=== PATIENT | female | born 1995 | race Caucasian/White ===

== ENCOUNTER 2023-10-21 10:00 | Emergency (ER) | payer OTHER, SELFPAY ==
[2023-10-21] VITALS (10 sets, daily range): BP systolic 105–119; BP diastolic 72–92; BMI 27.8
--- NOTE | 2023-10-21 10:02 | ED.GENMED ---
History of Present Illness
General
Chief Complaint: Overdose Unintentional
Time Seen by Provider: 10/21/23 10:01
History of Present Illness
History of Present Illness:
HPI: Patient came in by ambulance. History was obtained from EMS at 10:05 AM. They were called to her residence. There was 'some rhiannon' there who gave the patient Narcan. The patient tells me that she was 'smoking with some people'. She is a very
unreliable historian at this time. EMS also gave a dose of Narcan. She tells me that her son was there but EMS states that there was nobody else there other than that '1 rhiannon'.
EXAM:
GENERAL: The patient appears encephalopathic
HEENT: Moist oral mucosa
CARDIOVASCULAR: No murmurs, tachycardia heart rate with regular rhythm, No chest wall tenderness
PULMONARY: No respiratory distress, breath sounds are clear and equal
ABDOMEN: Soft with no peritoneal signs, no tenderness
NEUROLOGIC: Excellent strength all extremities, no coordination deficits
PSYCHIATRIC: Appropriate mental status, normal insight and judgement
EXTREMITIES: Nontender, no edema, moves all extremities equally
SKIN: No rash, no lesions
ED COURSE:
10:05 AM: I initially evaluated patient
NUMBER AND COMPLEXITY OF PROBLEMS ADDRESSED AT THE ENCOUNTER
� Chronic conditions affecting care: History of alcohol abuse
� Acute Exacerbation and/or Progression of Chronic Illness: This appears to be a recurring problem
� Differential Diagnosis includes: Delirium tremens, polysubstance abuse, hepatic encephalopathy
AMOUNT AND/OR COMPLEXITY OF DATA TO BE REVIEWED AND ANALYZED
� I performed an independent evaluation of and my interpretation is:
EKG: Sinus 96, left axis deviation, QTc 482 ms, no acute ST abnormality
CT:
X-rays:
Laboratory Studies: Alcohol level 322, UDS positive for amphetamine/methamphetamine, mild LFT abnormality noted, ammonia negative
Other:
� Review of other/old records: Patient was admitted here for 4 days this past July. At that time she was found to be pancytopenic and had abnormal LFTs and imaging showed a hemangioma and she ultimately signed out AMA at
that time.
� Clinical information was obtained by an independent historian: I spoke to EMS upon arrival, I also spoke to ex-boyfriend at bedside
� Prescriptions/Medications Considered but not given:
� Further testing considered but not performed:
RISK OF COMPLICATIONS AND/OR MORBIDITY OR MORTALITY OF PATIENT MANAGEMENT
� Social determinants of health affecting care: She was at a house in [facility] when this happened
� Discussion with other providers: No immediate response from [facility]
� Escalation of care including admission/observation vs risk of discharge considered: Blood work shows no sign of hepatic encephalopathy. However she is positive for both amphetamine and alcohol. She appeared confused at first
which I suspect is related to polysubstance abuse. I reassessed the patient at 2:20 PM. She is now significantly improved with her mental status. However she now reports some concern for the possibility of . She states she had a
positive test at home and had vaginal bleeding earlier and was concerned about the possibly of 'a pinworm in the blood'. I reassessed patient at 3 PM. hCG test is negative. She is very comfortable in appearance and prefers to go home.
Past History
Past History
ED Past Medical History: Other (Alcoholic liver disease)
ED Past Surgical History: Gynecological
Social History
Alcohol: Chronic alcoholic
Drug: Other
Living: with family
Employment: Not employed
Family History
Family History: Other (Noncontributory)
Phy Exam
Physical Exam
Physical Exam:
See HPI
Course
Orders/Labs/Results
Orders:
Orders
10/21/23
Electrocardiogram (*1) Stat
Comment: ALREADY DONE
10/21/23 10:10
0.9% Sodium Chloride 1000 ml [Nss] 1,000 ml IV BOLUS
10/21/23 10:14
Alcohol Urgent
Ammonia Urgent
Basic Metabolic Panel Urgent
Complete Blood Count/With Diff Urgent
LFT [[id number]-Njtr-[id number]] Urgent
Lipase Urgent
10/21/23 10:36
Drug Screen, Urine [Urine Drug Abuse Screen] Urgent
Date Specimen was Collected: 10/21/23
Time Specimen was Collected: 10:36
Fentanyl, Urine Urgent
HCG, Urine Qualitative Screen Urgent
Date Specimen was Collected: 10/21/23
Time Specimen was Collected: 10:36
10/21/23 12:09
Ondansetron Injectable [Zofran] 4 mg .ROUTE .STK-MED ONE
Ondansetron Injectable [Zofran] 4 mg IV NOW STA
10/21/23 13:18
0.9% Sodium Chloride 1000 ml [Nss] 1,000 ml IV BOLUS
Famotidine [Pepcid] 20 mg IV NOW STA
Ondansetron Injectable [Zofran] 4 mg IV NOW STA
10/21/23 14:23
Add On- LAB Urgent
Tests Added?: urine hcg
Abnormal Lab Results
10/21/23 10/21/23
10:14 10:36
WBC 4.3 L 10^3/uL
(4.8-10.8)
RBC 4.12 L 10^6/uL
(4.20-5.40)
Hct 35.2 L %
(37.0-47.0)
Plt Count 119 L 10^3/uL
(130-400)
Neutrophils % 37.6 L %
(42.2-75.2)
Lymphocytes % 54.0 H %
(20.5-51.1)
Creatinine 0.4 L mg/dL
(0.6-1.0)
Direct Bilirubin 0.7 H mg/dl
(0.0-0.4)
AST 198 H U/L
(14-36)
ALT 116 H U/L
(0-35)
Alkaline Phosphatase 133 H U/L
(38-126)
Ammonia < 9 L umol/L
(9-30)
Ur Amphetamines Screen Positive H
(Negative)
U Methamphetamines Scrn Positive H
(Negative)
10/21/23 10:14
10/21/23 10:14
Vital Signs
Initial and Last Documented VS:
Initial Vital Signs
Temp Pulse Resp BP Pulse Ox
98.3 F 114 16 112/92 100
10/21/23 10:07 10/21/23 10:07 10/21/23 10:07 10/21/23 10:07 10/21/23 10:07
Last Documented Vital Signs
Temp Pulse Resp BP Pulse Ox
98.3 F 97 16 114/83 97
10/21/23 10:07 10/21/23 13:45 10/21/23 13:45 10/21/23 13:30 10/21/23 13:45
*Critical Care Note
Total Time (30-74mins, 75-104mins- exclusive of procedures): Not Applicable
ED Attending Note
-
Portions of this chart may have been created with voice recognition software.� Occasional wrong word or��sound alike� substitutions may have occurred due to the inherent limitations of voice recognition software.
Discharge Plan
Departure
Patient Disposition: Home (Routine Discharge)
Date of Disposition: 10/21/23
Time of Disposition: 14:57
Patient with high blood pressure during this ER visit?: Yes
Discharge Problem:
Severe substance use disorder
Prescriptions:
No Action
lorazepam 1 mg Tablet
1 mg PO BID PRN (Reason: anxiety)
Rx Instructions:
07/24/2023, patient filled this medication on 06/06/2023 for 60 tablets according to PDMP.
albuterol sulfate 90 mcg/actuation Hfa Aerosol Inhaler
1 puff INHALATION R Q4HPRN PRN (Reason: sob)
Medical Marijuana
2 inh inhalation HS
Patient Comments:
07/24/2023, patient states their weed comes in a cartridge and they vape it every night before going to bed; patient states they usually take 2 inhalations of their vape pen.
Activity Restrictions/Additional Instructions:
I tried contacting [facility] however they did not answer. The phone number that you could try to call them at is [phone]. Basic blood work is relatively unremarkable, your alcohol level is high at 322 and you are positive for amphetamines in the
urine drug screen. test is negative. Return here if worse.
Interventions
Interventions:
*Risk Screen - Suicide Last Done: 10/21/23 10:20
*General Assessment Last Done: 10/21/23 10:20
*Neglect/Abuse Screening Last Done: 10/21/23 10:20
ED- Fall Risk Assessment Last Done: 10/21/23 10:23
*ED COVID-19 Vaccine History Last Done: 10/21/23 10:12
ED- Cardiac Assessment Last Done: 10/21/23 10:24
ED- Neurological Assessment Last Done: 10/21/23 10:24
ED-Psychological Assessment Last Done: 10/21/23 10:24
ED- Pulmonary Assessment Last Done: 10/21/23 10:24
[2023-10-21] MEDS: NSS 1000 IV ×2 (10:18→13:23)
[2023-10-21 10:25] LABS: % Basophils 0.5 % (0-2); % Eosinophils 0.7 % (0-6); % Immature Granulocytes 0.2 % (0-0.5); % Neutrophils 37.6 % (42.2-75.2); Absolute Lymphocytes 2.3 10^3/uL (1.2-3.4); Absolute Monocytes 0.3 10^3/uL (0.1-0.6); Absolute Neutrophils 1.6 10^3/uL (1.4-6.5); Hematocrit 35.2 % (37.0-47.0); Hemoglobin 12.3 g/dL (12.0-16.0); Mean Corp Hgb Conc. 34.9 g/dL (33.0-37.0); Mean Corpuscular Hgb 29.9 pg (27.0-31.0); Mean Corpuscular Volume 85.4 fL (81.0-99.0); Nucleated Red Blood Cells % 0 %; Red Blood Cell Count 4.12 10^6/uL (4.20-5.40); Red Cell Dist. Width 12.1 % (11.5-14.5); White Blood Cell Count 4.3 10^3/uL (4.8-10.8)
[2023-10-21 10:38] LABS: Ammonia < 9 umol/L (9-30)
[2023-10-21 10:40] LABS: ALT (SGPT) 116 U/L (0-35); AST (SGOT) 198 U/L (14-36); Albumin 4.8 g/dl (3.5-5.0); Alkaline Phosphatase 133 U/L (38-126); Blood Urea Nitrogen 9 mg/dl (7-17); Calcium 8.6 mg/dl (8.4-10.2); Carbon Dioxide 25 mmol/L (22-30); Chloride 101 mmol/L (98-107); Direct Bilirubin 0.7 mg/dl (0.0-0.4); Estimated Creatinine Clearance > 125 ml/min; Glucose 75 mg/dl (70-99); Lipase 173 U/L (23-300); Potassium 3.6 mmol/L (3.5-5.1); Sodium 140 mmol/L (135-145); Total Bilirubin 0.9 mg/dl (0.2-1.3); Total Protein 8.1 g/dl (6.3-8.2); eGFR > 60.00
[2023-10-21 11:34] LABS: Amphetamines Positive (Negative); Barbiturates Negative (Negative); Benzodiazepines Negative (Negative); Buprenorphine Negative (Negative); Cocaine Negative (Negative); Marijuana Negative (Negative); Methadone Negative (Negative); Methamphetamines Positive (Negative); Opiates Negative (Negative); Phencyclidine Negative (Negative); Tricyclic Antidepressants Negative (Negative)
[2023-10-21 11:45] LABS: Alcohol 322 mg/dl
[2023-10-21 11:48] LABS: Mean Platelet Volume 9.8 fL (7.4-10.4); Platelet Count 119 10^3/uL (130-400)
[2023-10-21] MEDS: ZOFRAN 4 MG IV ×2 (12:10→13:23)
[2023-10-21 12:15] LABS: Fentanyl, Urine Negative (Negative)
[2023-10-21] MEDS: PEPCID 20 MG IV (13:23)
[2023-10-21 14:42] LABS: HCG, Urine Qualitative Screen Negative
== END 2023-10-21 15:30 | disposition home or self-care (01) ==
LOC: EMR 10:00
PROVIDERS: EMERGENCY PHYSICIAN Emergency Medicine; FAMILY PHYSICIAN Physician Assistant Medical
DX: F15.90 Other stimulant use, unspecified, uncomplicated (principal); F10.90 Alcohol use, unspecified, uncomplicated; Y90.8 Blood alcohol level of 240 mg/100 ml or more; R41.0 Disorientation, unspecified; Z91.041 Radiographic dye allergy status
CPT/HCPCS: 99284; 96374; 96375 ×2; 96361 ×2; 80048; 80076; 80306; 80307; 81025; 82077; 82140; 83690; 85025; 93005

== ENCOUNTER 2023-10-22 14:17 | Emergency (ER) | payer OTHER, SELFPAY ==
[2023-10-22 14:22] VITALS: BP 120/90
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
[2023-10-22 15:39] LABS: % Basophils 0.5 % (0-2); % Eosinophils 0.3 % (0-6); % Immature Granulocytes 0.3 % (0-0.5); % Lymphocytes 19.5 % (20.5-51.1); % Monocytes 7.4 % (1.7-9.3); Absolute Lymphocytes 0.7 10^3/uL (1.2-3.4); Absolute Monocytes 0.3 10^3/uL (0.1-0.6); Absolute Neutrophils 2.7 10^3/uL (1.4-6.5); Hematocrit 32.7 % (37.0-47.0); Hemoglobin 11.4 g/dL (12.0-16.0); Mean Corp Hgb Conc. 34.9 g/dL (33.0-37.0); Mean Corpuscular Hgb 30.5 pg (27.0-31.0); Mean Corpuscular Volume 87.4 fL (81.0-99.0); Mean Platelet Volume 9.9 fL (7.4-10.4); Nucleated Red Blood Cells % 0 %; Platelet Count 78 10^3/uL (130-400); Red Blood Cell Count 3.74 10^6/uL (4.20-5.40); Red Cell Dist. Width 12.2 % (11.5-14.5); White Blood Cell Count 3.8 10^3/uL (4.8-10.8)
[2023-10-22] MEDS: TORADOL 15 MG IV (15:39)
[2023-10-22] MEDS: NSS 1000 IV (15:40)
[2023-10-22] MEDS: ZOFRAN 4 MG IV (15:40)
[2023-10-22 15:49] LABS: ALT (SGPT) 107 U/L (0-35); AST (SGOT) 186 U/L (14-36); Alkaline Phosphatase 104 U/L (38-126); Blood Urea Nitrogen 6 mg/dl (7-17); Calcium 9.1 mg/dl (8.4-10.2); Carbon Dioxide 29 mmol/L (22-30); Chloride 98 mmol/L (98-107); Glucose 87 mg/dl (70-99); Potassium 3.7 mmol/L (3.5-5.1); Sodium 137 mmol/L (135-145); Total Bilirubin 1.2 mg/dl (0.2-1.3); eGFR > 60.00
[2023-10-22 16:26] LABS: Lipase 144 U/L (23-300)
[2023-10-22] MEDS: BENADRYL 25 MG IV (17:03)
[2023-10-22] MEDS: SOLU-CORTEF 200 MG IV (17:03)
[2023-10-22 17:41] LABS: HCG, Serum Qualitative Screen Negative
[2023-10-22 19:35] VITALS: BP 105/75
== END 2023-10-22 20:02 | disposition home or self-care (01) ==
LOC: EMR 14:17
PROVIDERS: Physician Assistant; EMERGENCY PHYSICIAN Emergency Medicine
DX: R10.9 Unspecified abdominal pain (principal); K29.70 Gastritis, unspecified, without bleeding; F10.10 Alcohol abuse, uncomplicated; D69.6 Thrombocytopenia, unspecified
CPT/HCPCS: 99284; 96374; 96375; 96361; 74177; 80053; 83690; 84703; 85025; Q9967

== ENCOUNTER 2024-02-05 01:00 | Emergency (ER) | payer OTHER, SELFPAY ==
[2024-02-05 01:04] VITALS: BP 120/76
[2024-02-05 02:17] VITALS: BMI 30.9
[2024-02-05 02:32] LABS: % Basophils 0.8 % (0-2); % Eosinophils 1.7 % (0-6); % Immature Granulocytes 0.2 % (0-0.5); % Lymphocytes 32.9 % (20.5-51.1); % Monocytes 14.3 % (1.7-9.3); % Neutrophils 50.1 % (42.2-75.2); Absolute Eosinophils 0.1 10^3/uL (0-0.7); Absolute Lymphocytes 1.7 10^3/uL (1.2-3.4); Absolute Monocytes 0.7 10^3/uL (0.1-0.6); Absolute Neutrophils 2.6 10^3/uL (1.4-6.5); Hematocrit 31.7 % (37.0-47.0); Hemoglobin 10.2 g/dL (12.0-16.0); Mean Corp Hgb Conc. 32.2 g/dL (33.0-37.0); Mean Corpuscular Hgb 28.5 pg (27.0-31.0); Mean Corpuscular Volume 88.5 fL (81.0-99.0); Mean Platelet Volume 10.2 fL (7.4-10.4); Nucleated Red Blood Cells % 0 %; Platelet Count 167 10^3/uL (130-400); Red Blood Cell Count 3.58 10^6/uL (4.20-5.40); Red Cell Dist. Width 14.5 % (11.5-14.5); White Blood Cell Count 5.2 10^3/uL (4.8-10.8)
--- NOTE | 2024-02-05 02:36 | EDRN ---
Pt pleasant, cooperative, very talkative. Pt came to crisis to be placed in a different rehab. Pt says she abuses alcohol, meth and percocet. Pt last drank 4 days ago. Pt in ED for medical clearance.
[2024-02-05 02:53] LABS: HCG, Serum Qualitative Screen Negative
[2024-02-05 02:57] LABS: Blood Urea Nitrogen 9 mg/dl (7-17); Calcium 9.4 mg/dl (8.4-10.2); Carbon Dioxide 28 mmol/L (22-30); Chloride 104 mmol/L (98-107); Estimated Creatinine Clearance > 125 ml/min; Glucose 92 mg/dl (70-99); Potassium 3.9 mmol/L (3.5-5.1); Sodium 139 mmol/L (135-145); eGFR > 60.00
[2024-02-05 02:59] LABS: Alcohol None Detected
--- NOTE | 2024-02-05 03:29 | ED.GENMED ---
History of Present Illness
General
Chief Complaint: Substance Abuse
Source: patient
Exam Limitations: none
Time Seen by Provider: 02/05/24 03:29
Nursing documentation reviewed up to this point in time: agreed with
Travel History
Have you had any contact with someone who has COVID-19?: No
Do you have any symptoms of coronavirus? Fever > 100 degrees, chills, cough, shortness of breath, sore throat, loss of taste or smell, muscle aches, or headache?: No
History of Present Illness
History of Present Illness:
28-year-old female presents to the emergency department requesting detox from alcohol, meth, and Percocet. She was in a facility several days ago and was discharged because she was vomiting and the facility did not have the capability to handle her
incessant vomiting.. She stated that she vomits when she does not have her Protonix. She could not get her Protonix at the facility until Monday. Patient reports no substance use for the last week.
Past History
Past History
ED Past Medical History: Other (Alcoholic liver disease)
ED Past Surgical History: Gynecological
Social History
Alcohol: Chronic alcoholic
Drug: Other
Living: with family
Employment: Not employed
Family History
Family History: Other (Noncontributory)
Review of Systems
Review of Systems
Allergies reviewed?: Yes
All Other Systems: ROS reviewed and negative except as documented in HPI and ROS
Constitutional: Reports no symptoms
EENT: Reports no symptoms
Respiratory: Reports no symptoms
Cardiac: Reports no symptoms
ABD/GI: Reports no symptoms
: Reports no symptoms
Musculoskeletal: Reports no symptoms
Skin: Reports no symptoms
Neurological: Reports no symptoms
Endocrine: Reports no symptoms
Hematologic/Lymphatic: Reports no symptoms
Psychiatric: Reports no symptoms
Phy Exam
General Physical Exam
General Presentation: well appearing and no apparent distress
General Skin: warm and dry
General Habitus: normal
General Mental: alert
General Hydration: appears well hydrated
ENT Exam
ENT Exam: EOMI, pharynx normal, neck supple and normocephalic
Eye Exam
Eye Exam: PERRL, cornea clear and conjunctiva normal
Cardiovascular Exam
Cardiovascular Exam: regular rate/rhythm, no edema, no murmur and normal peripheral pulses
Pulmonary Exam
Pulmonary Exam: lungs clear, no respiratory distress, no rales, no crackles, no rhonchi, no stridor, no wheezing and no cough
Gastrointestinal Exam
Gastrointestinal Exam: normal bowel sounds, non tender, soft, no organomegaly, no pulsatile mass and non distended
Neurological Exam
Neurological Exam: alert, oriented x3, no motor deficits and speech normal
Musculoskeletal Exam
Musculoskeletal Exam: full ROM and no edema
Skin Exam
Skin Exam: normal color, warm/dry, no rash and no petechia
Psychiatric Exam
Psychiatric Exam: normal mood/affect
Course
Orders/Labs/Results
Orders:
Orders
02/05/24 02:09
Test Result ONCE
02/05/24 02:17
Alcohol Urgent
Basic Metabolic Panel Urgent
Complete Blood Count/With Diff Urgent
HCG, Serum Qualitative Screen Urgent
02/05/24 06:37
Buprenorphine [Subutex] 2 mg SL NOW STA
Clonidine [Catapres] 0.1 mg PO NOW STA
02/06/24 00:50
Buprenorphine [Subutex] 2 mg SL NOW ONE
02/06/24 09:24
Clonidine [Catapres] 0.1 mg PO NOW STA
HydrOXYZINE [Atarax] 25 mg PO NOW STA
Loratadine [Claritin] 10 mg PO NOW STA
Lorazepam [Ativan] 1 mg PO NOW STA
Pantoprazole [Protonix] 40 mg PO NOW STA
Sertraline HCl [Zoloft] 50 mg PO NOW STA
02/06/24 09:25
Buprenorphine [Subutex] 16 mg SL ONCE ONE
02/06/24 09:39
Docusate W/Senna [Senokot-S] 2 tablet PO NOW STA
02/06/24 09:45
Amphet Asp/Amphet/D-Amphet [Adderall] 20 mg PO ONCE ONE
02/06/24 09:55
Phenyleph/Mineral Oil/Petrolat [Preparation H Ointment] See Dose Instructions RECTAL NOW STA
02/06/24 10:00
Bupropion(12Hr)Sustain Release [WELLBUTRIN SR (12 hour sustained release)] 150 mg PO ONCE ONE
Abnormal Lab Results
02/05/24
02:17
RBC 3.58 L 10^6/uL
(4.20-5.40)
Hgb 10.2 L g/dL
(12.0-16.0)
Hct 31.7 L %
(37.0-47.0)
MCHC 32.2 L g/dL
(33.0-37.0)
Absolute Monos (auto) 0.7 H 10^3/uL
(0.1-0.6)
Monocytes % 14.3 H %
(1.7-9.3)
02/05/24 02:17
02/05/24 02:17
Vital Signs
Initial and Last Documented VS:
Initial Vital Signs
Temp Pulse Resp BP Pulse Ox
97.7 F 112 22 120/76 98
02/05/24 01:04 02/05/24 01:04 02/05/24 01:04 02/05/24 01:04 02/05/24 01:04
Last Documented Vital Signs
Temp Pulse Resp BP Pulse Ox
97.7 F 61 18 93/51 99
02/05/24 01:04 02/06/24 09:36 02/05/24 20:59 02/06/24 09:36 02/06/24 07:44
*Critical Care Note
Total Time (30-74mins, 75-104mins- exclusive of procedures): Not Applicable
Update Note
Update Note:
Abraham Khanna called and will confirm [facility] facility is able to accept her for the morning.
02/05/2024 0423 AM: The care is called back and stated that patient can be discharged while waiting for a bed. We will give her a packet and they will call her to let her know where and when to report for treatment.
ED Attending Note
-
Portions of this chart may have been created with voice recognition software.� Occasional wrong word or��sound alike� substitutions may have occurred due to the inherent limitations of voice recognition software.
Discharge Plan
Departure
Patient Disposition: Home (Routine Discharge)
Date of Disposition: 02/05/24
Time of Disposition: 04:13
Patient with high blood pressure during this ER visit?: Yes
Discharge Problem:
Polypharmacy, Alcohol use
Instructions: Polysubstance Use Disorder (DC), BLOOD PRESSURE
Prescriptions:
No Action
lorazepam 1 mg Tablet
1 mg PO QID
albuterol sulfate 90 mcg/actuation Hfa Aerosol Inhaler
1 puff INHALATION R Q4HPRN PRN (Reason: sob)
clonidine HCl 0.1 mg Tablet
0.1 mg PO BIDPRN PRN (Reason: anxiety/withdrawal)
trazodone 50 mg Tablet
50 mg PO HS
prazosin 1 mg Capsule
1 mg PO HS
dextroamphetamine-amphetamine [Adderall] 10 mg Tablet
10 mg PO HS
melatonin 3 mg Tablet
3 - 6 mg PO HSPRN PRN (Reason: sleep)
tramadol 50 mg Tablet
50 mg PO BID PRN (Reason: liver mass pain)
pantoprazole [Protonix] 20 mg Tablet,Delayed Release (Dr/Ec)
20 mg PO DAILY
dextroamphetamine-amphetamine [Adderall] 20 mg Tablet
20 mg PO DAILY
mirtazapine [Remeron] 15 mg Tablet
15 mg PO HS
sertraline 50 mg Tablet
50 mg PO DAILY
loratadine 10 mg Tablet
10 mg PO DAILY
hydroxyzine pamoate 25 mg Capsule
25 mg PO Q6H
bupropion HCl [Wellbutrin XL] 150 mg Tablet Extended Release 24 Hr
150 mg PO DAILY
buprenorphine-naloxone [Suboxone] 8-2 mg Tablet, Sublingual
2 tab SUBLINGUAL DAILY
Referrals:
Adolfo Pickard PA-C [Family Provider] -
Marysol Beaver [Active] -
Activity Restrictions/Additional Instructions:
[facility] will call you when a bed is available and will give you instructions on how to obtain a rehab facility. Patient was reexamined multiple times during this ER stay.
It was a pleasure meeting you and taking part in your care. We hope for your continued healing and wellness.
Please read discharge instructions in their entirety. However, they are for general education and may not describe your exact diagnosis at discharge. Information on your ER visit and medical conditions were discussed with you along with appropriate
follow up information...
If indicated, please take your medications as instructed and indicated on discharge paperwork.
Please schedule a follow up appointment as directed. Call to schedule an appointment
Please return to the emergency department with ANY change in, persisting, or worsening of symptoms. If any of your symptoms do not improve, or persist, or become more severe within 6-12 hours, please return to the emergency department for further
care.
Please return to the emergency department if you develop a headache, neck pain/stiffness, fever greater than 100.4F, chest pain, shortness of breath, persistent nausea, vomiting, slurred speech, difficulty walking, numbness/tingling, weakness, signs
of infection or any other symptoms that are worrisome to you.
If you have any questions or concerns please do not hesitate to call the Hospital at .
.
Interventions
Interventions:
*Risk Screen - Suicide Last Done: 02/05/24 01:04
*General Assessment Last Done: 02/05/24 02:17
*Neglect/Abuse Screening Last Done: 02/05/24 01:04
ED- Fall Risk Assessment Last Done: 02/06/24 12:01
*ED COVID-19 Vaccine History Last Done: 02/05/24 02:08
*Nursing Disposition Last Done: 02/06/24 12:01
ED-Psychological Assessment Last Done: 02/06/24 07:49
ED-Skin Assessment Last Done: 02/05/24 02:34
Discharge Date and Time
Discharge Date/Time: 02/06/24 12:03
Print Language: HUNGARIAN
[2024-02-05 06:19] VITALS: BP 107/62
--- NOTE | 2024-02-05 06:22 | EDRN ---
Woke pt to recheck VS and give her d/c instructions. Pt upset that she is not being placed in rehab from here. Pt says she was told to come here and would be placed in a rehab. Pt very concerned about leaving stating she knows she will not be
safe and will probably use drugs and/or alcohol. Dr Torres informed and UC calling [facility] to let them know pt is not being discharged, will remain here and needs to be placed from . Pt updated and relieved with change in disposition.
[2024-02-05] MEDS: SUBUTEX 2 MG SL (07:40)
[2024-02-05] MEDS: CATAPRES 0.100000000000000006 MG PO (07:40)
[2024-02-05 11:07] VITALS: BP 112/74
[2024-02-05 18:09] VITALS: BP 110/73
[2024-02-05 20:59] VITALS: BP 115/74
--- NOTE | 2024-02-06 00:30 | EDRN ---
Report received, patient resting comfortably at this time.
[2024-02-06] MEDS: SUBUTEX 2 MG SL (00:53)
--- NOTE | 2024-02-06 01:01 | EDRN ---
Patient was asking about subutex, reported they gave her some before, spoke with Dr. Colbert who ordered what she got before, patient resting comfortably with security at bedside, no further complaints
--- NOTE | 2024-02-06 06:15 | EDRN ---
Patient is sleeping at this time, call medrano in reach
--- NOTE | 2024-02-06 07:04 | EDRN ---
Report given to Sarina Stanford
[2024-02-06 07:44] VITALS: BP 90/63
[2024-02-06] MEDS: PROTONIX 40 MG PO (09:35)
[2024-02-06] MEDS: ATIVAN 1 MG PO (09:35)
[2024-02-06] MEDS: ATARAX 25 MG PO (09:35)
[2024-02-06] MEDS: CLARITIN 10 MG PO (09:36)
[2024-02-06] MEDS: CATAPRES 0.100000000000000006 MG PO (09:36)
[2024-02-06] MEDS: ZOLOFT 50 MG PO (09:36)
[2024-02-06] MEDS: SUBUTEX 16 MG SL (09:43)
[2024-02-06] MEDS: SENOKOT-S 2 TABLET PO (09:43)
[2024-02-06] MEDS: WELLBUTRIN SR (12 hour sustained release) 150 MG PO (09:53)
[2024-02-06] MEDS: ADDERALL 20 MG PO (09:54)
== END 2024-02-06 12:03 | disposition home or self-care (01) ==
LOC: EMR 01:00
PROVIDERS: EMERGENCY PHYSICIAN Student in an Organized Health Care Education/Training Program; FAMILY PHYSICIAN Physician Assistant Medical
DX: F10.20 Alcohol dependence, uncomplicated (principal); F15.10 Other stimulant abuse, uncomplicated; F11.10 Opioid abuse, uncomplicated; K70.9 Alcoholic liver disease, unspecified; M79.89 Other specified soft tissue disorders
CPT/HCPCS: 99285; 80048; 82077; 84703; 85025

== ENCOUNTER 2024-11-12 12:33 | Inpatient (IN) | payer OTHER, SELFPAY ==
[2024-11-09] VITALS (9 sets, daily range): BP systolic 95–136; BP diastolic 64–94; BMI 26.5
--- NOTE | 2024-11-09 15:10 | ED.GENMED ---
History of Present Illness
General
Chief Complaint: Overdose Unintentional
Source: ambulance crew
Exam Limitations: altered mental status
Time Seen by Provider: 11/09/24 14:55
Nursing documentation reviewed up to this point in time: agreed with
History of Present Illness
History of Present Illness:
29-year-old female presents emergency department after an overdose. She took a lot of pills, drank alcohol and called EMS. EMS gave her 2 mg IM Narcan, and 2 mg IV Narcan. They state her vital signs were stable throughout. She opens her eyes to
voice and touch. She has clonidine 0.1 mg, folic acid 1 mg, lorazepam 1 mg, bupropion XL 150 mg, vitamin B1 100 mg tablets, buspirone 5 mg, dextro amp�amphetamine, trazodone 50 mg , pantoprazole 40 mg, 25 mg hydroxyzine, and melatonin 3 mg.
Past History
Past History
ED Past Medical History: GERD and Other (Alcoholic liver disease)
ED Past Surgical History: Gynecological
Social History
Alcohol: Chronic alcoholic
Drug: Other
Living: with family
Employment: Not employed
Family History
Family History: Other (Noncontributory)
Review of Systems
Review of Systems
Allergies reviewed?: Yes
All Other Systems: Not applicable
Phy Exam
Physical Exam
Physical Exam:
Physical Exam
General: opens eyes spontaneously, nonverbal, drowsy
Neck: supple. no meningeal signs. normal posterior pharynx
Heart: s1/s2 regular rate and rhythm, no murmur. equal radial
pulses.
HEENT: Pupils equal round reactive to light, EOMI
Lungs: no acute respiratory distress. clear bilaterally
Abdomen: normal bowel sounds. not tender. no CVAT
Neuro: Opens eyes spontaneously, moves all extremities
Skin: no rash, multiple tattoos on chest
Psychiatric: Obtunded, nonverbal, drowsy
Extremities: no edema. no calf tenderness. negative homans. good distal pulses
Course
Orders/Labs/Results
Orders:
Orders
11/09/24 14:57
Electrocardiogram (*1) Urgent
Reason for Study: Fatigue / Weakness
11/09/24 14:58
EKG- Treatment ONCE
11/09/24 14:59
Complete Blood Count/With Diff Urgent
Comprehensive Metabolic Panel Urgent
Fentanyl, Urine Urgent
Urinalysis Reflex To Culture Urgent
Date Specimen was Collected: 11/09/24
Time Specimen was Collected: 14:57
Urine Drug Abuse Screen Urgent
Date Specimen was Collected: 11/09/24
Time Specimen was Collected: 14:57
11/09/24 Dinner
Regular
At Your Request: Full Participation
11/09/24 15:06
Cardiac Monitoring- Treatment ONCE
11/09/24 15:07
CT Head W/o Iv Contrast Urgent
Comment:
Reason For Exam: altered mental status
11/09/24 15:08
CR Chest Portable - 1 View Urgent
Comment:
Reason For Exam: overdose, altered mental status
Reason Study Needs to be Portable: Patient Unstable
11/09/24 15:09
Test Result ONCE
11/09/24 15:10
Bedside Glucose- Treatment ONCE
11/09/24 15:11
Acetaminophen Urgent
Alcohol Urgent
B-Hydroxybutyrate Urgent
GGTP Urgent
HCG, Serum Qualitative Screen Urgent
Magnesium Urgent
Salicylate Urgent
11/09/24 19:13
Admit/Transfer Patient As Directed
Co-Sign Provider:
Level of Care: Observation services
Assign to:: Telemetry
Physician / Group: Ashwin Melgoza
Diagnosis: overdose, alcohol intoxication
Reason for Telemetry: Arrhythmia
Date to Stop Telemetry: 11/12/24
Time to Stop Telemetry: 11:00
11/09/24 19:14
PRN Pain Medication Management As Directed
May give lesser potent ordered pain med per pt: Yes
preference::
Protocol:: Medication orders for pain may be administered in a
manner that supports deferring to patient preference
when the pt is:
- Requesting an ordered lesser potent pain medication.
Least to most potent pain medications are defined
as: acetaminophen < NSAID < tramadol < opioids
(morphine, oxycodone, hydromorphone).
- Requesting a lesser dose of the same medication IF
ORDERED.
- Requesting a less intrusive route of administration
if both routes are prescribed by the provider (PO <
IV).
11/09/24 19:15
Code Status As Directed
Resuscitation Status: Full Code
11/09/24 20:47
0.9% Sodium Chloride 1000 ml [Nss] 1,000 ml IV 100 mls/hr
0.9% Sodium Chloride [Nss (Preservative Free)] See Protocol IV PRN PRN
Lorazepam [Ativan] 1 mg IV Q1HPRN PRN
Lorazepam [Ativan] 1 mg PO Q2HPRN PRN
Lorazepam [Ativan] 2 mg IV Q1HPRN PRN
11/09/24 20:47
1:1 Observation - Suicide/ Violent Behavior As Directed
Case Management Consult Once
Case Management Consult: Other
Comment: Substance abuse counseling
PSYCHIATRY CONSULT Routine
Consulting Provider: Stacey Kerr
Was physician already notified: Yes
Reason for consult: overdose
Activity As Directed
Activity Level: Out of Bed-Early Mobility
MSAS SCORE As Directed
MSAS Score 0-4: Repeat MSAS every 2 hours until 0-4 for three consecutive assessments, then every 4 hours x 48
hours.
MSAS Score 5-7: For MILD withdrawl symptoms. Repeat MSAS and RASS every 2 hours
MSAS Score 8-11: For MODERATE withdrawal symptoms. Repeat MSAS and RASS every 1 hour. Consider ICU or IMU
level of care.
MSAS Score > 11: For SEVERE withdrawal symptoms. Repeat MSAS and RASS every 1 hour. Notify provider, consider
ICU level of care.
MSAS Additional Instructions: If no improvement or no decrease in score from severe to moderate within 12
hours, consult psychiatry
MSAS Notify Provider: Notify provider if patient requires more than 10 mg of Lorazepam in eight hour period.
Pneumatic Compression Sleeves As Directed
Type: Knee high
Vital Signs As Directed
Frequency: Per unit guidelines
Weight As Directed
Frequency: Once
DX Deep Vein Thrombosis Video Routine
11/10/24 00:00
Thiamine Injection 200 mg IV Q8
Thiamine Injection 500 mg 0.9% Sodium Chloride 250 ml [Nss] 250 ml IV Q8
11/10/24 06:00
EKG [Electrocardiogram (*1)] IN AM
Reason for Study: QTc Monitoring
Basic Metabolic Panel IN AM
Comprehensive Metabolic Panel IN AM
Phosphorus IN AM
11/10/24 08:00
FOLic ACID [Folvite] 1 mg PO DAILY
FOLic ACID [Folvite] 1 mg 0.9% Sodium Chloride 50 ml [Nss] 50 ml IV DAILYPRN
11/12/24 11:00
DC Protocol for Telemetry ONCE
11/12/24 20:00
Thiamine HCl [Vitamin B1] 100 mg PO BID
Abnormal Lab Results
11/09/24 11/09/24 11/09/24
14:59 15:11 15:18
WBC 4.6 L 10^3/uL
(4.8-10.8)
MPV 10.6 H fL
(7.4-10.4)
Chloride 108 H mmol/L
(98-107)
Glucose 110 H mg/dl
(70-99)
GGT 176 H U/L
(12-43)
AST 316 H U/L
(14-36)
ALT 127 H U/L
(0-35)
Salicylates < 1.0 L mg/dl
(2.0-20.0)
Acetaminophen < 10 L ug/ml
(10-30)
Ur Amphetamines Screen Positive H
(Negative)
U Benzodiazepines Scrn Positive H
(Negative)
POC Glucose 110 H mg/dl
(70-99)
11/09/24 14:59
11/09/24 14:59
Vital Signs
Initial and Last Documented VS:
Initial Vital Signs
Pulse Resp BP Pulse Ox
64 11 108/83 100
11/09/24 14:54 11/09/24 14:54 11/09/24 14:54 11/09/24 14:54
Last Documented Vital Signs
Temp Pulse Resp BP Pulse Ox
98.2 F 64 16 136/94 98
11/09/24 22:02 11/09/24 22:02 11/09/24 22:02 11/09/24 22:02 11/09/24 22:02
MDM/Problems Addressed
Differential Diagnosis Includes:
Toxic ingestion, alcohol intoxication, suicide attempt
MDM/Problems Addressed:
29-year-old female with alcohol ingestion, now denying SI. Admit for further evaluation and monitoring for seizures due to bupropion ingestion.
Chronic conditions affecting care: Other (Liver disease alcoholic)
*Radiology
Radiology exam reviewed: radiology read reviewed (CT head no acute findings, cxr nad)
*Pulse Oximetry
Patient hypoxic: no
*EKG
Interpreted by ED Provider?: Yes
EKG Intrepretation Date: 11/09/24
EKG Intrepretation Time: 15:05
Interpretation: normal
Comparison EKG: no comparison EKG present
Heart Rate: 66
Rate: normal
Rhythm: sinus
[place]: normal axis
Interval: normal interval
QRS Pattern: normal QRS
Ischemia: no ischemia
*Community Program Assistant Interpretation
Rate: normal
Interpretation: normal
Heart Rate: 68
Rhythm: sinus
*Critical Care Note
Total Time (30-74mins, 75-104mins- exclusive of procedures): 30
comment:
Critical care statement: A total of 30 minutes of critical care time was provided for this patient. This includes management of unstable vital signs, evaluation of the patient at bedside, reviewing the patient's pertinent medical records, discussion
with consultants, review of old EKGs and review of pertinent medical records. This time with separate from time utilized to perform the aforementioned documented procedures
Patient Management
Social determinants of health affecting care: Living situation and Substance abuse
Discussion with other providers: Hospitalist
Escalation/DeEscalation of care consider admission/obs:
Admit indicated
ED Attending Note
-
Portions of this chart may have been created with voice recognition software.� Occasional wrong word or��sound alike� substitutions may have occurred due to the inherent limitations of voice recognition software.
Discharge Plan
Departure
Patient Disposition: Admit
Date of Disposition: 11/09/24
Time of Disposition: 18:41
Admit to: IMU
Presentation/result/management discussed w/ accepting MD/DO: Hospitalist
Patient with high blood pressure during this ER visit?: No
Condition: Fair
Discharge Problem:
Overdose by ingestion, Alcohol intoxication
Interventions
Interventions:
*Risk Screen - Suicide Last Done: 11/09/24 14:56
*General Assessment Last Done: 11/09/24 14:56
*Neglect/Abuse Screening Last Done: 11/09/24 14:56
ED- Fall Risk Assessment Last Done: 11/09/24 21:46
*ED COVID-19 Vaccine History Last Done: 11/09/24 14:56
*Nursing Disposition Last Done: 11/09/24 21:46
ED- Cardiac Assessment Last Done: 11/09/24 15:00
ED- Neurological Assessment Last Done: 11/09/24 15:00
ED-Psychological Assessment Last Done: 11/09/24 15:00
ED- Pulmonary Assessment Last Done: 11/09/24 15:00
Discharge Date and Time
Discharge Date/Time: 11/09/24 21:46
[2024-11-09 15:15] LABS: Urine Albumin Negative (Neg - Trace); Urine Bilirubin Negative (Negative); Urine Character Clear (Clear); Urine Color Yellow; Urine Glucose Negative (Negative); Urine Ketone Negative (Negative); Urine Leukocyte Negative (Negative); Urine Nitrite Negative (Negative); Urine Occult Blood Negative (Negative); Urine Urobilinogen Negative (Neg - 1+); Urine pH 6.5 (5.0-9.0)
[2024-11-09 15:18] LABS: % Basophils 0.7 % (0-2); % Eosinophils 0.7 % (0-6); % Immature Granulocytes 0.4 % (0-0.5); % Lymphocytes 47.8 % (20.5-51.1); % Monocytes 5.5 % (1.7-9.3); % Neutrophils 44.9 % (42.2-75.2); Absolute Lymphocytes 2.2 10^3/uL (1.2-3.4); Absolute Monocytes 0.3 10^3/uL (0.1-0.6); Absolute Neutrophils 2.1 10^3/uL (1.4-6.5); Hematocrit 38.5 % (37.0-47.0); Hemoglobin 12.9 g/dL (12.0-16.0); Mean Corp Hgb Conc. 33.5 g/dL (33.0-37.0); Mean Corpuscular Hgb 28.2 pg (27.0-31.0); Mean Corpuscular Volume 84.1 fL (81.0-99.0); Mean Platelet Volume 10.6 fL (7.4-10.4); Nucleated Red Blood Cells % 0 %; Platelet Count 178 10^3/uL (130-400); Red Blood Cell Count 4.58 10^6/uL (4.20-5.40); Red Cell Dist. Width 13.8 % (11.5-14.5); White Blood Cell Count 4.6 10^3/uL (4.8-10.8)
[2024-11-09 15:20] LABS: Glucose - Point of Care 110 mg/dl (70-99)
[2024-11-09 15:39] LABS: ALT (SGPT) 127 U/L (0-35); AST (SGOT) 316 U/L (14-36); Albumin 4.1 g/dl (3.5-5.0); Alkaline Phosphatase 112 U/L (38-126); Blood Urea Nitrogen 8 mg/dl (7-17); Calcium 8.6 mg/dl (8.4-10.2); Carbon Dioxide 26 mmol/L (22-30); Chloride 108 mmol/L (98-107); Glucose 110 mg/dl (70-99); Potassium 4.4 mmol/L (3.5-5.1); Sodium 143 mmol/L (135-145); Total Bilirubin 0.8 mg/dl (0.2-1.3); Total Protein 7.1 g/dl (6.3-8.2); eGFR > 60.00
[2024-11-09 15:40] LABS: HCG, Serum Qualitative Screen Negative
[2024-11-09 15:43] LABS: Acetaminophen < 10 ug/ml (10-30); Salicylate < 1.0 mg/dl (2.0-20.0)
[2024-11-09 15:59] LABS: Alcohol 343 mg/dl
[2024-11-09 16:05] LABS: Amphetamines Positive (Negative); Barbiturates Negative (Negative); Benzodiazepines Positive (Negative); Buprenorphine Negative (Negative); Cocaine Negative (Negative); Marijuana Negative (Negative); Methadone Negative (Negative); Methamphetamines Negative (Negative); Opiates Negative (Negative); Phencyclidine Negative (Negative); Tricyclic Antidepressants Negative (Negative)
[2024-11-09 16:28] LABS: Fentanyl, Urine Negative (Negative)
--- NOTE | 2024-11-09 18:42 | HPS.HSE ---
Family Physician
-
Family Physician: INTERVIEWE UNKNOWN - PT NOT
Chief Complaint
-
overdose
History of Present Illness
Patient is a 29-year-old female with past medical history significant for substance abuse, alcohol abuse, anxiety and ADHD who presented to [facility] ED for unintentional overdose. HPI gathered from ED documentation. It is reported that
patient took a lot of pills, drank alcohol and called EMS. EMS administered 2mg IM Narcan and 2mg IV Narcan. EMS stated VS remained stable during transport. Patient will wake to name, but does not answer questions directly. She has multiple
prescription bottles at bedside, sucralfate, lorazepam, melatonin, bupropion, buspirone, Vit B1, Adderall, trazodone, Protonix and folic acid. When questioned patient states she does not take any medication everyday and does not know last time she
took any medication. All bottles dated from >1 month ago.
Medical History
Past Medical History
Past Medical History: Reports Other
Additional Past Medical History:
substance abuse
alcohol abuse
anxiety
ADHD
Past Surgical History: Reports Other
Additional Past Surgical History:
lipoma neck removal
tonsillectomy
adenoidectomy
Social History
Unable to obtain full social history at this time due to: Other (patient does not answer questioning )
Family History
Family History: Unable to Obtain
Allergies / Home Medications
Allergies reflects when Allergies were last updated in [facility].
Home Medications with original date entered in [facility]
Allergy/Medication List:
Allergies
Allergy/AdvReac Type Severity Reaction Status Date / Time
Iodinated Contrast Media Allergy Unknown Verified 02/05/24 01:08
Home Medications
albuterol sulfate 90 mcg/actuation aerosol inhaler 1 puff inhalation R Q4HPRN PRN sob 07/24/23
lorazepam 1 mg tablet 1 mg PO QID 07/24/23
buprenorphine 8 mg-naloxone 2 mg sublingual tablet 2 tab sublingual DAILY 02/05/24
bupropion HCl 150 mg 24 hr tablet, extended release (Wellbutrin XL) 150 mg PO DAILY 02/05/24
clonidine HCl 0.1 mg tablet 0.1 mg PO BIDPRN PRN anxiety/withdrawal 02/05/24
dextroamphetamine-amphetamine 10 mg tablet (Adderall) 10 mg PO HS 02/05/24
dextroamphetamine-amphetamine 20 mg tablet (Adderall) 20 mg PO DAILY 02/05/24
hydroxyzine pamoate 25 mg capsule 25 mg PO Q6H 02/05/24
loratadine 10 mg tablet 10 mg PO DAILY 02/05/24
melatonin 3 mg tablet 3 - 6 mg PO HSPRN PRN sleep 02/05/24
mirtazapine 15 mg tablet (Remeron) 15 mg PO HS 02/05/24
pantoprazole 20 mg tablet,delayed release (Protonix) 20 mg PO DAILY 02/05/24
prazosin 1 mg capsule 1 mg PO HS 02/05/24
sertraline 50 mg tablet 50 mg PO DAILY 02/05/24
tramadol 50 mg tablet 50 mg PO BID PRN liver mass pain 02/05/24
trazodone 50 mg tablet 50 mg PO HS 02/05/24
Review of Systems
-
Unable to obtain full review of systems at this time due to: Other (patient does not answer questioning )
History Source: Patient
Physical Exam
Vital Signs
Vital Signs
Pulse Resp BP Pulse Ox
63 8 98/70 99
11/09/24 18:15 11/09/24 18:15 11/09/24 18:00 11/09/24 18:15
Physical Exam
General: Well Developed, Well Nourished and No Apparent Distress
HEENT: NormoCephalic, Moist mucous membranes, Atraumatic, [place] Conjunctivae, Nose Appears Normal and Ears Appear Normal
Respiratory: Clear and Non Labored Respirations
Cardiac: S1/S2 and Regular Rhythm; No Murmur, Rub or Gallop
GI: Soft, Non Tender, Non Distended and Normal Bowel Sounds; No Organomegaly
Rectal: Deferred by Provider
Genito-urinary: Deferred by me
Musculoskeletal: No Clubbing, No Cyanosis and No Edema
Skin: Warm and IV/Catheter Site; No Rash
Neuro: Slurred Speech and Sedated
Laboratory Results
-
11/09/24 14:59
11/09/24 14:59
Laboratory Results
Total Bilirubin 0.8 mg/dl (0.2-1.3) 11/09/24 14:59
AST 316 U/L (14-36) H 11/09/24 14:59
ALT 127 U/L (0-35) H 11/09/24 14:59
Alkaline Phosphatase 112 U/L (38-126) 11/09/24 14:59
Data Reviewed
-
Diagnostic Radiology: Report Reviewed by me (CXR: 1. No radiographic evidence for pneumonia or aspiration pneumonitis. 2. Mild elevation of the right hemidiaphragm)
CT Scan: Report Reviewed by me (Head: No CT evidence for acute intracranial disease.)
Medical Tests (Nuc Med, Echo, EKG etc): Report Reviewed by me (EKG: NORMAL SINUS RHYTHM LOW VOLTAGE QRS INCOMPLETE RIGHT BUNDLE BRANCH BLOCK PROLONGED QT)
Lab Data: Labs Reviewed by me (AST 316, ALT 127, Urine +amphetamines, +benzo, +ETOH quantitative 343)
Impression/Plan
-
IMPRESSION/PLAN:
#unintentional vs. intentional overdose
#hx substance abuse
#hx alcohol abuse
Urine: +amphetamines
+benzodiazepines
Alcohol quantitative: 343
EKG: NORMAL SINUS RHYTHM
LOW VOLTAGE QRS
INCOMPLETE RIGHT BUNDLE BRANCH BLOCK
PROLONGED QT
- admit to telemetry
- supportive care
- EKG in morning to monitor QTc
- Consult psychiatry
- 1:1
- MSAS protocol
- hold all home medications
#anxiety
#ADHD
Code status: full code
DVT prophylaxis: SCDs
--- NOTE | 2024-11-09 19:37 | W.PN.UPDATE ---
Update Note
Progress Note Update
This is an addendum to the H&P written by Mignon Church on 11/09/2024. Patient seen and examined independently with SOFTWARE SALES REPRESENTATIVE.
29-year-old female past medical history of alcohol use disorder, substance use disorder, anxiety, ADHD, presenting for drug overdose. Patient cannot provide much history is currently very lethargic but she states that some rhiannon she lives with is
giving her drugs and mixing drugs in her drink. She is unable to say why she took this. Denies suicidal intention. She complains of abdominal pain and pain everywhere and withdrawal.
EKG shows normal sinus rhythm, low voltage QRS, QT prolongation with a QTc of 503.
UDS is positive for amphetamines and benzodiazepines likely secondary to her home medications. Tylenol level and salicylate is negative. Alcohol level of 343.
Presentation consistent with alcohol intoxication as well as possible overdose of her psychiatric medications. Hold all psychiatric medications. Toxicology was notified and recommended monitoring overnight. Repeat EKG in the morning to check for
QTc improvement. Thiamine and folate, IV fluids. Alcohol withdrawal protocol. Psychiatry consulted. One-to-one sitter.
[2024-11-09] MEDS: NSS 1000 IV (22:28)
[2024-11-09] MEDS: ATIVAN 1 MG PO (22:42)
[2024-11-09 23:03] LABS: GGTP 176 U/L (12-43)
[2024-11-09 23:12] LABS: B-Hydroxybutyrate 0.17 mmol/L (0.02-0.27)
[2024-11-10] VITALS (9 sets, daily range): BP systolic 91–135; BP diastolic 69–93
[2024-11-10] MEDS: THIAMINE INJECTION 255 MG IV
[2024-11-10] MEDS: THIAMINE INJECTION 200 MG IV ×3 (00:02→15:23)
[2024-11-10] MEDS: ATIVAN 1 MG PO ×4 (01:12→21:53)
[2024-11-10] MEDS: COMPAZINE 5 MG IV (01:58)
[2024-11-10] MEDS: ATIVAN 1 MG IV ×5 (03:07→20:28)
[2024-11-10] MEDS: NSS (PRESERVATIVE FREE) 0.5 ML IV ×4 (03:07→20:27)
--- NOTE | 2024-11-10 04:50 | PTCARENOTE ---
pt arrived to floor via stretcher from ED an pulled over to bed. ED reported MSAS 0, Msas was 5 after transfer. pt appears inebriated, slurring words, tearful, poor historian. MSAS protocol followed. VSS, Meds adminiterd, pt placed on tele, 1:[address] Pt brought with many meds in a bag. 14 bottles in total, 4 of which are empty. Meds documented and sent to pharmacy. Empty bottles return to pt with belongings. will review chart and follow plan of care.
[2024-11-10 05:49] LABS: ALT (SGPT) 144 U/L (0-35); AST (SGOT) 332 U/L (14-36); Albumin 3.6 g/dl (3.5-5.0); Alkaline Phosphatase 126 U/L (38-126); Blood Urea Nitrogen 8 mg/dl (7-17); Calcium 8.7 mg/dl (8.4-10.2); Carbon Dioxide 24 mmol/L (22-30); Chloride 101 mmol/L (98-107); Estimated Creatinine Clearance 117 ml/min; Glucose 99 mg/dl (70-99); Phosphorus 3.6 mg/dl (2.5-4.5); Potassium 3.8 mmol/L (3.5-5.1); Sodium 133 mmol/L (135-145); Total Bilirubin 1.3 mg/dl (0.2-1.3); Total Protein 6.4 g/dl (6.3-8.2); eGFR > 60.00
[2024-11-10] MEDS: NSS 1000 IV ×2 (08:16→16:17)
[2024-11-10] MEDS: FOLVITE 1 MG PO (08:17)
[2024-11-10] MEDS: ProAIR HFA INHALER 2 PUFF INH (09:06)
[2024-11-10] MEDS: ATIVAN 0.5 MG IV (09:24)
--- NOTE | 2024-11-10 09:27 | CM ---
Addendum entered by Franklin Montez 11/10/24 09:32:
OBS letter explained to the pt, placed on chart, pt has a copy.
Original Note:
CM following re: discharge planning.
Reviewed pt's chart, met with pt.
pt is a 28 year old female, admitted with primary dx of Unintentional OD
Pt is well know to this CM from previous admission. Pt reports she used to live with family in [facility], 2 her children lives with their grandmother. Pt reports she talks to her children periodically. Pt reports she rents a room in [facility]
house in [facility]
Pt admitted to h/o alcohol abuse. Pt stated she usually drinks a gallon of whisky daily and planning to decrease alcohol consumption. Pt stated she she lost her boyfriend her boyfriend because of drinking. Resources of alcohol related treatment
discussed with the pt. Pt expressed her agreement to go to [facility] inpatient residential D&A treatment for detox and possibility residential program. pt stated she was at [facility] 2 years ago, was helpful for some time and pt stated
she relapsed. Pt expressed her agreement to meet with [facility] team. A referral to [facility] made.
D/C plan: pt agrees with going to [facility] D&A rehab for detox and possibly residential program.
CM will follow with discharge plan updates as hospitalization progresses
[2024-11-10] MEDS: THIAMINE INJECTION IV (09:44)
--- NOTE | 2024-11-10 12:12 | PTCARENOTE ---
This am, pulse ox was 100% on 2 liters. I turned off oxygen, pt immediately started saying she cant breath and was having a panic attack with midsternal chest pain. she requested to have her oxygen placed back on. oxygen replaced, EKG obtained,
sinus april no st changes or t wave inversions in any leads. MD ordered albuterol, it was given and extra dose of IV ativan given as per md order. pt immediatly went to sleep
--- NOTE | 2024-11-10 14:48 | CON.MD ---
Consultation - Medical
-
29 yr old F, presented to ED after possible unintentional overdose, as per H&P: 'Patient cannot provide much history is currently very lethargic but she states that some rhiannon she lives with is giving her drugs and mixing drugs in her drink. She is
unable to say why she took this. Denies suicidal intention. She complains of abdominal pain and pain everywhere and withdrawal.
EKG shows normal sinus rhythm, low voltage QRS, QT prolongation with a QTc of 503.
UDS is positive for amphetamines and benzodiazepines likely secondary to her home medications. Tylenol level and salicylate is negative. Alcohol level of 343.'
Pt seen at bedside - she reports long hx of EtOH use and that she decided to stop drinking 2 days ago because she wanted to get sober. Reports that by the second day she was feeling body aches, headaches, unable to move and hallucinating. Pt says
that she looked up etoh withdrawal and that is when she learned that these sxs are typical of etoh w/d, as well as risk of . Pt says that she called 911 at this point and told them she overdosed so that she could be taken to ED. To note, pts
etoh level of 343 is inconsistent with not drinking for 2 days however she is quite clearly unwell and may not be able to provide a clear or consistent hx at this point. She was also reported to have received Narcan IM 2mg & IV 2mg by EMS, though
unclear to what degree this affected pt, however cannot rule out intoxication with other substances as well.
She does report drinking 1/5 of whiskey daily since age 25 - reports not missing any days in this span of time, with AM tremulousness/need to drink to settle nerves. Reports feeling better after receiving Ativan but still unwell - with body aches,
confusion, anxiety, tremulousness. Reports experiencing hallucinations prior to receiving Ativan.
EtOH abuse, severe, w/ current etoh w/d
MSE:,cooperative,,speech is ,minimal,mood is anxious, affect is ,anxious, thought process is logical & goal directed, thought content: denies SI/HI/delusions, reports AVH recently. Superficially oriented. Memory not formally tested. Insight fair.
Judgement fair
Pt is at high risk of etoh w/d w/ potential for DT, pt started on phenobarbital taper with initial loading dose.
Continue MSAS protocol.
Psychiatry will follow, will obtain further hx once w/d sxs improve
--- NOTE | 2024-11-10 14:51 | W.PN.HOSP.TC ---
Today's Communication/Plan
-
Tx to IMU
CW IV fluids and SHANAE protocol
Assessment / Plan
Assessment / Plan
Alcohol use disorder initially presented with alcohol intoxication and now with alcohol withdrawal. She is currently having hallucination suspect sec to withdrawal. She no more lethargic or decreased responsiveness and out of intoxication. She
wants to quit alcohol.
She has prior hospitalizations for alcohol withdrawal.
She is currently with alcohol withdrawal syndrome but no seizures.
Continue with Ativan and MSAS score.
Add phenobarbital.
Moved to IMU.
Continue with folic acid and thiamine.
Psychiatrist following.
Orthostatic hypotension-suspect volume deficit. No obvious extrarenal losses. Supported IV fluids and follow. Check TSH.
Abnormal liver function test with elevated transaminitis-suspect secondary to alcohol use. Follow for now.
History of substance abuse-urine drug screen positive for benzos and amphetamine which is suspect may be secondary to her medication use.
Anxiety/ADHD-medication per psychiatrist.
Full code.
DW RN
DW psychiatrist
Total time spent on today's encounter was 52 minutes which included time spent in counseling the patient/family regarding diagnosis and treatment plan as listed above, goals of care, and symptom management. Case was discussed with nursing staff,
specialists, and care coordinators/case management. All labs and imaging personally reviewed by me. Remainder the time spent in detailed review of previous records, lab data, imaging, and other medical provider documentation.
Anticipated Discharge: > 48 hours
Subjective/Interval History
-
Date of Service: November 10, 2024
Patient is anxious looking.
She says she is having hallucination-states things on the mederos and the ceilings. She sees things which are dark.
She feels fearful of things in general.
She feels anxious.
No nausea vomiting but does not do much appetite.
Objective Data
-
Labs:
Laboratory Results
11/10/24
04:27
Sodium 133 L D
Potassium 3.8
Chloride 101
Carbon Dioxide 24
BUN 8
Creatinine 0.5 L
Glucose 99
Calcium 8.7
Total Bilirubin 1.3
AST 332 H
ALT 144 H
Alkaline Phosphatase 126
Vital Signs:
Vital Signs
Temp Pulse Resp BP Pulse Ox
98.6 F 61 20 129/72 100
11/10/24 11:15 11/10/24 11:15 11/10/24 11:15 11/10/24 11:15 11/10/24 12:17
I&O
11/09/24 11/10/24 11/11/24
06:59 06:59 06:59
Intake Total 2315 / 2315 480 / 480
Balance 2315 / 2315 480 / 480
Review of Systems
-
Respiratory: Denies Trouble Breathing
Cardiac: Denies Chest Pain
Neuro: Reports Dizzy
Physical Exam
-
General: Negative No Apparent Distress
Respiratory: Clear to Auscultation and Non Labored Respirations; Negative Accessory Resp Muscle Use
Cardiac: Regular Rhythm and S1/S2; Negative Tachycardic
GI: Soft, Nontender, Nondistended and Normal Bowel Sounds
Neuro: AO x 3 and Tremors (MILD)
Psych: Anxious
Data Reviewed
-
Labs: Labs Reviewed by me
--- NOTE | 2024-11-10 15:04 | PTCARENOTE ---
PT began co of dizziness. orthostatics done to follow up on this complaint. SBP dropped into 90s with standing associated with severe tremors. at this time psych Md came in. Pt started having increased visual and sensory hallucinations, her HR now
in upper 70s, profuse diaphoreses, pt denies nausea, pt very restless and anxious. Pt ordered for transfer to floor. report called and transfered to floor.
[2024-11-10] MEDS: PHENOBARBITAL 102 MG IV (15:05)
--- NOTE | 2024-11-10 15:16 | PTCARENOTE ---
Patient arrived to IMU. Patient AOx3. Patient having visual and sensory hallucinations. Patient stated 'there are bugs crawling on me and I see bugs crawling on the mederos'. MSAS completed on arrival to the floor. PRN ativan given for MSAS score of
9. NSR on the monitor. Patient on 2L NC with SpO2 98-100%. Patient stated 'do not take oxygen off of me, I cannot breath without it'. IV phenobarb gtt started per order. Care explained to patient. 1:[address] per order. Call medrano within reach, bed
in lowest position, bed of wheels locked, and bed alarm on and audible.
--- NOTE | 2024-11-10 16:00 | PTCARENOTE ---
MSAS completed Q1 hour per order. Patient asleep, but arousable to voice. 1:1 at bedside per order. Care ongoing at this time.
[2024-11-10] MEDS: TYLENOL 650 MG PO ×2 (17:44→21:53)
[2024-11-10] MEDS: PHENOBARBITAL 97.5 MG IV (22:06)
--- NOTE | 2024-11-10 22:53 | PTCARENOTE ---
Pt received from Previous RN. Pt ordered MSAS. MSAS completed per order. See msas intervention documentation for scoring. Pt intermittently sleeping/ then awake and diaphoretic, tremulous, and tachy. Pt denies hallucinations at this time. Pt is
arousable to verbal stimuli, can answer all orientation questions. 1:1 at bedside per order. assessment as documented. Call light in reach. Safe environment maintained.
[2024-11-11] VITALS (11 sets, daily range): BP systolic 92–143; BP diastolic 66–94
[2024-11-11] MEDS: THIAMINE INJECTION 200 MG IV ×4 (00:07→23:04)
[2024-11-11] MEDS: ATIVAN 1 MG IV ×10 (00:07→21:06)
[2024-11-11] MEDS: NSS (PRESERVATIVE FREE) 0.5 ML IV ×10 (00:08→21:05)
[2024-11-11] MEDS: NSS 1000 IV ×3 (01:23→21:14)
[2024-11-11] MEDS: ATIVAN 1 MG PO ×3 (01:24→20:39)
[2024-11-11] MEDS: TYLENOL 650 MG PO ×3 (05:22→19:35)
[2024-11-11 06:05] LABS: ALT (SGPT) 104 U/L (0-35); AST (SGOT) 196 U/L (14-36); Albumin 3.2 g/dl (3.5-5.0); Alkaline Phosphatase 103 U/L (38-126); Blood Urea Nitrogen 6 mg/dl (7-17); Calcium 8.6 mg/dl (8.4-10.2); Carbon Dioxide 26 mmol/L (22-30); Chloride 103 mmol/L (98-107); Estimated Creatinine Clearance 117 ml/min; Glucose 97 mg/dl (70-99); Magnesium 1.7 mg/dl (1.6-2.3); Sodium 134 mmol/L (135-145); Total Bilirubin 1.1 mg/dl (0.2-1.3); Total Protein 5.9 g/dl (6.3-8.2); eGFR > 60.00
[2024-11-11 06:16] LABS: Hematocrit 34.1 % (37.0-47.0); Hemoglobin 11.3 g/dL (12.0-16.0); Mean Corp Hgb Conc. 33.1 g/dL (33.0-37.0); Mean Corpuscular Volume 84.4 fL (81.0-99.0); Mean Platelet Volume 10.6 fL (7.4-10.4); Platelet Count 98 10^3/uL (130-400); Red Blood Cell Count 4.04 10^6/uL (4.20-5.40); Red Cell Dist. Width 12.9 % (11.5-14.5); White Blood Cell Count 4.2 10^3/uL (4.8-10.8)
[2024-11-11 06:29] LABS: TSH 2.79 uIU/ml (0.47-4.68)
[2024-11-11] MEDS: FOLVITE 1 MG PO (08:36)
[2024-11-11] MEDS: PHENOBARBITAL 97.5 MG IV ×3 (08:36→21:06)
[2024-11-11] MEDS: COMPAZINE 5 MG IV ×2 (11:16→19:21)
--- NOTE | 2024-11-11 14:11 | W.PN.UPDATE ---
Update Note
Progress Note Update
Pt seen, resting in bed, easily awakened. Alert and oriented after awake, making good eye contact. Pt anticipated questions about whether she has SI or intentionally OD'd- pt denies any intentional OD, denies SI. Pt concerned about getting
anxiety medications- is prescribed Ativan 1 mg BID by her PCP as well as Adderall per the PDMP. Pt did not want to go over her other psychotropic medications today. No agitation or psychosis evident at present. Pt stated interest in getting
sober, stated she can't continue getting drunk while trying to maintain her job/function.
Imp: Alcohol Use d/o
Unspecified anxiety, depression- consistently denies SI
Rec: 1:1 supervision does not appear to be needed
Would continue to hold off Wellbutrin XL for now. Agree with MSAS protocol, Phenobarb taper
Will follow and review other anxiety medications when pt able
--- NOTE | 2024-11-11 16:39 | W.PN.HOSP.TC ---
Today's Communication/Plan
-
Assessment / Plan
Assessment / Plan
Gen-AAOx3, NAD
HEENT-NC, AT, anicteric, clear oral mm
Neck-supple
CV-reg, no M, +S1/S2
Lungs-clear B/L
Abd-soft, NT, ND
Musculoskeletal-no edema, no deformity
Skin-warm and dry
Neuro-grossly non-focal
Psych-anxious, cooperative
Alcohol use disorder initially presented with alcohol intoxication and now with alcohol withdrawal. She is currently having hallucination suspect sec to withdrawal. She no more lethargic or decreased responsiveness and out of intoxication. She
wants to quit alcohol.
She has prior hospitalizations for alcohol withdrawal.
She is currently with alcohol withdrawal syndrome but no seizures.
Continue with Ativan and MSAS score.
Continue scheduled phenobarbital.
Moved to IMU.
Continue with folic acid and thiamine.
Psychiatrist following, one-to-one supervision discontinued, will further discuss antianxiety regimen later.
Orthostatic hypotension-suspect volume deficit. No obvious extrarenal losses. Supported IV fluids and follow. TSH within normal limits
Abnormal liver function test with elevated transaminitis-suspect secondary to alcohol use. Improving, follow for now.
History of substance abuse-urine drug screen positive for benzos and amphetamine which is suspect may be secondary to her medication use.
Anxiety/ADHD-medication per psychiatrist.
Full code.
Anticipated Discharge: > 48 hours
Subjective/Interval History
-
Date of Service: November 11, 2024
Patient was seen and examined at bedside this morning. Remains extremely anxious, receiving scheduled phenobarbital and as needed benzodiazepines for treatment of alcohol withdrawal.
Objective Data
-
Labs:
Laboratory Results
11/11/24
05:07
WBC 4.2 L
Hgb 11.3 L
Hct 34.1 L
Plt Count 98 L D
Sodium 134 L
Potassium 4.0
Chloride 103
Carbon Dioxide 26
BUN 6 L
Creatinine 0.5 L
Glucose 97
Calcium 8.6
Total Bilirubin 1.1
AST 196 H
ALT 104 H
Alkaline Phosphatase 103
Vital Signs:
Vital Signs
Temp Pulse Resp BP Pulse Ox
98.0 F 69 12 106/66 98
11/11/24 15:16 11/11/24 12:15 11/11/24 12:15 11/11/24 12:00 11/11/24 12:15
I&O
11/10/24 11/11/24 11/12/24
06:59 06:59 06:59
Intake Total 2315 / 2315 2920 / 2920 840 / 840
Balance 2315 / 2315 2920 / 2920 840 / 840
Review of Systems
-
History Source: Patient
All other systems: Reviewed and negative
Psych: Reports Anxious
Physical Exam
-
General: No Apparent Distress
--- NOTE | 2024-11-11 17:00 | PTCARENOTE ---
Patient AOx3. Patient having visual and sensory hallucinations and is anxious. MSAS completed per order. Ativan given PRN for MSAS score. NSR with prolonged QT on the monitor. Patient on RA. Care explained to patient. 1:1 discontinued per psych
order. Call medrano within reach, bed in lowest position, bed of wheels locked, and bed alarm on and audible.
--- NOTE | 2024-11-11 18:00 | PTCARENOTE ---
Dr. Jameson made aware that patient very restless, vomiting, thrashing around in bed, and having increased hallucinations. Emotional support and orientation to reality attempted with patient and unsuccessful. 1:1 ordered for safety for patient.
1:1 at bedside. Call medrano within reach, bed in lowest position, and bed of wheels locked.
--- NOTE | 2024-11-11 21:27 | PTCARENOTE ---
Rec'd pt at change of shift. MSAS Q1 per protocol. Pt crying, calling out, c/o visual hallucinations when due for medication. Frequently requesting ativan. Difficult to determine accuracy of MSAS d/t subjective component, will score to the best of
ability. Pt noncompliant with BP cuff, frequently removing. Education provided on importance of VS, especially when receiving medications such as ativan, pt continues with noncompliance. Refuses SCDs. Pt insists on wearing NC, although 98% on RA. Pt
cries and c/o SOB when NC removed. PRN compazine given for nausea. Bed alarm in place for pt safety. Call medrano within reach.
--- NOTE | 2024-11-11 22:22 | PTCARENOTE ---
Addendum entered by Jaimie Pleitez 11/12/24 05:50:
Pt continued to refuse PO ativan throughout the night. 1mg IV ativan given when MSAS score 8-11 per orders.
Original Note:
MSAS 5, pt refuses PO ativan. States that it 'does not work'.
[2024-11-12] VITALS (14 sets, daily range): BP systolic 87–140; BP diastolic 69–101
[2024-11-12] MEDS: ATIVAN 1 MG IV ×7 (00:19→21:39)
[2024-11-12] MEDS: NSS (PRESERVATIVE FREE) 0.5 ML IV ×3 (00:20→13:42)
[2024-11-12] MEDS: COMPAZINE 5 MG IV (02:54)
[2024-11-12 05:31] LABS: % Basophils 0.8 % (0-2); % Eosinophils 3.5 % (0-6); % Immature Granulocytes 0.4 % (0-0.5); % Lymphocytes 46.4 % (20.5-51.1); % Monocytes 8.1 % (1.7-9.3); % Neutrophils 40.8 % (42.2-75.2); Absolute Eosinophils 0.2 10^3/uL (0-0.7); Absolute Lymphocytes 2.3 10^3/uL (1.2-3.4); Absolute Monocytes 0.4 10^3/uL (0.1-0.6); Hematocrit 34.5 % (37.0-47.0); Hemoglobin 11.6 g/dL (12.0-16.0); Mean Corp Hgb Conc. 33.6 g/dL (33.0-37.0); Mean Corpuscular Hgb 27.4 pg (27.0-31.0); Mean Corpuscular Volume 81.6 fL (81.0-99.0); Mean Platelet Volume 11.1 fL (7.4-10.4); Nucleated Red Blood Cells % 0 %; Platelet Count 106 10^3/uL (130-400); Red Blood Cell Count 4.23 10^6/uL (4.20-5.40); Red Cell Dist. Width 12.9 % (11.5-14.5); White Blood Cell Count 4.9 10^3/uL (4.8-10.8)
[2024-11-12 05:47] LABS: ALT (SGPT) 132 U/L (0-35); AST (SGOT) 256 U/L (14-36); Alkaline Phosphatase 114 U/L (38-126); Blood Urea Nitrogen 5 mg/dl (7-17); Calcium 8.9 mg/dl (8.4-10.2); Carbon Dioxide 23 mmol/L (22-30); Chloride 102 mmol/L (98-107); Estimated Creatinine Clearance 117 ml/min; Glucose 83 mg/dl (70-99); Magnesium 1.6 mg/dl (1.6-2.3); Phosphorus 3.8 mg/dl (2.5-4.5); Potassium 3.5 mmol/L (3.5-5.1); Sodium 135 mmol/L (135-145); Total Bilirubin 1.1 mg/dl (0.2-1.3); Total Protein 6.8 g/dl (6.3-8.2); eGFR > 60.00
[2024-11-12] MEDS: THIAMINE INJECTION 200 MG IV ×2 (09:00→15:44)
[2024-11-12] MEDS: FOLVITE 1 MG PO (09:00)
[2024-11-12] MEDS: NSS 1000 IV ×2 (09:00→20:14)
[2024-11-12] MEDS: PHENOBARBITAL 97.5 MG IV ×2 (09:00→15:44)
[2024-11-12] MEDS: ATIVAN 1 MG PO (09:03)
--- NOTE | 2024-11-12 10:40 | PTCARENOTE ---
Patient AAOx3, agitated at times. See documentation for MSAS and PRNs. VSS. Wants to sleep. Expressed that she would like to go to [facility] after DC. Bed alarm on. Will closely monitor.
--- NOTE | 2024-11-12 12:10 | CM ---
Patient with Hx Alcohol use disorder with Dx alcohol intoxication and now alcohol withdrawal. Tox screen noted. Room air. Receiving IV Phenobarb with taper, PO Ativan prn, IVF. MSAS. Seen by Psych.
Spoke with [facility] Anthony; provided update that patient is still receiving IV Phenobarb taper, to be followed by PO Phenobarb with taper as ordered - per Raj patient can go to an Inpt Rehab facility 24 hours after phenobarb taper is completed.
Nimo from [facility] will meet with the patient later today to discuss [facility].
Met with patient today; patient expressing some remorse about her past life choices and worrying about her health. She states she wants to go to [facility] Inpatient program at d/c, as she has attended their program before and it is close to
home- informed her that Nimo from [facility] will meet with her later today to discuss and set that up.
Patient shares she has no family. She states she had children that have been placed and she has no contact with them. Patient stated current contact in chart is old boyfriend Emile and she requests Emile be removed- she provided current
roommate/friend Nabeel Bradley [phone]. She wants to call her roommate to see if he will bring her some clothes to go to [facility]. CM notified Jessica in Admitting to update contact in chart.
Plan follow patient's progress including mobility and follow up with [facility].
Plan probable [facility]patient [facility] Abuse Rehab when medically ready.
--- NOTE | 2024-11-12 14:34 | W.PN.UPDATE ---
Update Note
Progress Note Update
Pt seen, asleep but easily awakened, insisting she needs more Ativan. Pt states she takes Ativan 4 times a day at home, though the Rx database does not show this. Pt endorsed taking a long list of psychotropic agents- clonidine 0.1 mg BID,
Vistaril 25 mg 'a lot', Remeron 15 mg HS, Prazosin 5 mg HS (for nightmares), Sertraline 50 mg QD, Trazodone 50 mg HS, Wellbutrin XL 'the highest.' Pt is benzo- seeking, despite being on Phenobarb, getting multiple doses of Ativan on the MSAS
protocol.
Imp: Alcohol Use d/o; Rx benzo dependence R/o benzo abuse
Unspecified anxiety, depression- consistently denies SI
Rec: continue MSAS protocol and Phenbarb taper
Would continue to hold off Wellbutrin XL. Will resume a few of the above agents and monitor response
Will follow
[2024-11-12] MEDS: ATIVAN 2 MG IV ×3 (14:44→20:18)
[2024-11-12] MEDS: NSS (PRESERVATIVE FREE) 1 ML IV ×4 (14:44→21:39)
[2024-11-12] MEDS: ATARAX 25 MG PO (15:45)
--- NOTE | 2024-11-12 15:49 | W.PN.HOSP.TC ---
Today's Communication/Plan
-
Assessment / Plan
Assessment / Plan
Gen-AAOx3, NAD
HEENT-NC, AT, anicteric, clear oral mm
Neck-supple
CV-reg, no M, +S1/S2
Lungs-clear B/L
Abd-soft, NT, ND
Musculoskeletal-no edema, no deformity
Skin-warm and dry
Neuro-grossly non-focal
Psych-anxious, cooperative
Alcohol use disorder initially presented with alcohol intoxication and now with alcohol withdrawal. She is currently having hallucination suspect sec to withdrawal. She no more lethargic or decreased responsiveness and out of intoxication. She
wants to quit alcohol.
She has prior hospitalizations for alcohol withdrawal.
She is currently with alcohol withdrawal syndrome but no seizures.
Continue with Ativan and MSAS score.
Continue scheduled phenobarbital.
Moved to IMU.
Continue with folic acid and thiamine.
Psychiatrist following, one-to-one supervision discontinued, resuming some of her home medications
Orthostatic hypotension-suspect volume deficit. No obvious extrarenal losses. Supported IV fluids and follow. TSH within normal limits
Abnormal liver function test with elevated transaminitis-suspect secondary to alcohol use. follow for now.
History of substance abuse-urine drug screen positive for benzos and amphetamine which is suspect may be secondary to her medication use.
Anxiety/ADHD-medication per psychiatrist.
Full code.
Anticipated Discharge: 24 - 48 hours
Subjective/Interval History
-
Date of Service: November 12, 2024
Patient was seen and examined at bedside this morning. Remains extremely anxious and continually asking for Ativan. No acute distress.
Objective Data
-
Labs:
Laboratory Results
11/12/24
05:05
WBC 4.9
Hgb 11.6 L
Hct 34.5 L
Plt Count 106 L
Sodium 135
Potassium 3.5
Chloride 102
Carbon Dioxide 23
BUN 5 L
Creatinine 0.5 L
Glucose 83
Calcium 8.9
Total Bilirubin 1.1
AST 256 H
ALT 132 H
Alkaline Phosphatase 114
Vital Signs:
Vital Signs
Temp Pulse Resp BP Pulse Ox
98.8 F 94 35 121/92 98
11/12/24 11:09 11/12/24 12:30 11/12/24 12:30 11/12/24 12:30 11/12/24 09:19
I&O
11/11/24 11/12/24 11/13/24
06:59 06:59 06:59
Intake Total 2920 / 2920 2039
Balance 2920 / 2920 2039
Review of Systems
-
History Source: Patient
All other systems: Reviewed and negative
Psych: Reports Anxious
Physical Exam
-
General: No Apparent Distress
[2024-11-12] MEDS: VITAMIN B1 100 MG PO (19:17)
[2024-11-12] MEDS: LUMINAL 64.8 MG PO (21:11)
[2024-11-12] MEDS: DESYREL 50 MG PO (21:11)
--- NOTE | 2024-11-12 23:33 | PTCARENOTE ---
Caring for pt overnight. aaox3, but forgetful. NSR/ST on monitor. Bed alarm. BSCX1. MSAS scoring anywhere from 3-11. Unable to tell if symptoms are real or if pt us causing tremors/symptoms. Ativan prn. Call medrano in reach. No other assessment
changes. will monitor.
[2024-11-13] VITALS (9 sets, daily range): BP systolic 116–137; BP diastolic 78–99
[2024-11-13] MEDS: NSS (PRESERVATIVE FREE) 1 ML IV ×7 (01:17→18:36)
[2024-11-13] MEDS: ATIVAN 1 MG IV ×5 (01:17→09:11)
[2024-11-13 05:34] LABS: % Basophils 0.8 % (0-2); % Eosinophils 2.3 % (0-6); % Immature Granulocytes 0.3 % (0-0.5); % Lymphocytes 40.4 % (20.5-51.1); % Monocytes 8.4 % (1.7-9.3); % Neutrophils 47.8 % (42.2-75.2); Absolute Basophils 0.1 10^3/uL (0-0.2); Absolute Eosinophils 0.2 10^3/uL (0-0.7); Absolute Lymphocytes 2.6 10^3/uL (1.2-3.4); Absolute Monocytes 0.5 10^3/uL (0.1-0.6); Absolute Neutrophils 3.1 10^3/uL (1.4-6.5); Hematocrit 34.8 % (37.0-47.0); Mean Corp Hgb Conc. 34.5 g/dL (33.0-37.0); Mean Corpuscular Hgb 27.9 pg (27.0-31.0); Mean Corpuscular Volume 80.9 fL (81.0-99.0); Mean Platelet Volume 11.4 fL (7.4-10.4); Nucleated Red Blood Cells % 0 %; Platelet Count 122 10^3/uL (130-400); Red Cell Dist. Width 12.9 % (11.5-14.5); White Blood Cell Count 6.5 10^3/uL (4.8-10.8)
[2024-11-13 05:49] LABS: ALT (SGPT) 129 U/L (0-35); AST (SGOT) 171 U/L (14-36); Albumin 3.7 g/dl (3.5-5.0); Alkaline Phosphatase 114 U/L (38-126); Blood Urea Nitrogen 3 mg/dl (7-17); Calcium 8.9 mg/dl (8.4-10.2); Carbon Dioxide 24 mmol/L (22-30); Chloride 102 mmol/L (98-107); Estimated Creatinine Clearance 117 ml/min; Glucose 91 mg/dl (70-99); Magnesium 1.6 mg/dl (1.6-2.3); Potassium 3.4 mmol/L (3.5-5.1); Sodium 135 mmol/L (135-145); Total Bilirubin 0.7 mg/dl (0.2-1.3); Total Protein 6.4 g/dl (6.3-8.2); eGFR > 60.00
[2024-11-13 05:55] LABS: Phosphorus 4.1 mg/dl (2.5-4.5)
--- NOTE | 2024-11-13 08:37 | PTCARENOTE ---
Addendum entered by Ashley Barrera 11/13/24 09:25:
Pt agreeable to stay at this time. Dr Frankel at bedside. MSAS reassessed with result of 11. PRN Ativan and scheduled Phenobarbital administered.
Original Note:
Pt extremely upset that she is only getting 'one unit' of Ativan. She states the physician told her yesterday she would get '3-4 units.' Also upset that her Phenobarbital is PO and not IV. Explained to pt that she is on a taper. Pt tearful and
stating that MD and staff are liars and we are not doing anything for her. Pt stating she will leave or wants to be transferred to another hospital. Dr. Frankel notified via TT, states he will be up to see pt shortly. Sedating medications held at
this time in case of AMA at this time.
[2024-11-13] MEDS: LUMINAL 64.8 MG PO (09:12)
[2024-11-13] MEDS: NSS (PRESERVATIVE FREE) 0.5 ML IV (09:12)
[2024-11-13] MEDS: ZOLOFT 50 MG PO (09:13)
[2024-11-13] MEDS: COMPAZINE 5 MG IV (09:13)
[2024-11-13] MEDS: VITAMIN B1 100 MG PO ×2 (09:13→20:45)
[2024-11-13] MEDS: FOLVITE 1 MG PO (09:13)
[2024-11-13] MEDS: ATIVAN 2 MG IV ×4 (10:42→20:48)
--- NOTE | 2024-11-13 11:18 | PHANOTE ---
med rec note- multiple people from pharmacy tried to do med rec with patient but patient was not cooperative. used ecw patient md has a note stated patient got out of rehab around 10/15/24 and called him to refill Suboxone 8mg bid but md told patient
that he can not. unable to get name of rehab or patient attention to do medication.
--- NOTE | 2024-11-13 12:20 | PTCARENOTE ---
Pt's MSAS continually high. Frequency of assessments increased to q1hr. Medicated as needed per protocol, see MAR.
--- NOTE | 2024-11-13 12:54 | CM ---
Patient with Hx Alcohol use disorder with Dx alcohol intoxication and now alcohol withdrawal. Tox screen noted. Room air. Receiving IV Phenobarb with taper, IV Ativan prn, IVF. MSAS 9 @ noon today per nurse. Seen by Psych.
Phone message from [facility] Suero 11/12 evening; she met with the patient 11/12 evening and patient declined to sign for assessment (for [facility]). [facility] days.
Spoke with [facility] Hi; reviewed patient's Hx and clinical status. Agree best to wait until at least tomorrow to meet with the patient, in the hopes she will agree with Inpatient D&A treatment.
Plan follow patient's progress including mobility and follow up with [facility].
Plan possible [facility]patient [facility] Abuse Rehab when medically ready.
--- NOTE | 2024-11-13 13:42 | W.PN.HOSP.TC ---
Today's Communication/Plan
-
Assessment / Plan
Assessment / Plan
Gen-AAOx3, NAD
HEENT-NC, AT, anicteric, clear oral mm
Neck-supple
CV-reg, no M, +S1/S2
Lungs-clear B/L
Abd-soft, NT, ND
Musculoskeletal-no edema, no deformity
Skin-warm and dry
Neuro-grossly non-focal
Psych-anxious, cooperative
Alcohol use disorder with acute withdrawal:
-Initially presented with alcohol intoxication and now with alcohol withdrawal.
-Has been intermittently having hallucination suspect sec to withdrawal.
-Now alert, no longer lethargic, she wants to quit alcohol.
-On multiple psychiatric medications at home including benzodiazepines which have been restarted
-Continue phenobarbital with prolonged taper
-Ativan as needed per MSAS protocol
-Psychiatry following
-Supportive care including antiemetics as needed
Orthostatic hypotension:
-suspect volume deficit.
-No obvious extrarenal losses. Supported IV fluids and follow.
-TSH within normal limits
Abnormal liver function test:
-elevated transaminitis-suspect secondary to alcohol use.
-Follow for now.
History of substance abuse:
-urine drug screen positive for benzos and amphetamine which is likely secondary to her medication use.
Hypokalemia:
-Mild, serum potassium 3.4 on labs this morning
-Will replete, monitor
Anxiety/ADHD-medication per psychiatrist.
Full code.
Anticipated Discharge: 24 - 48 hours
Subjective/Interval History
-
Date of Service: November 13, 2024
Patient was seen and examined at bedside this morning. Extremely anxious. Has not been getting some of her home medications which had not been confirmed. Added home clonidine and hydroxyzine.
Objective Data
-
Labs:
Laboratory Results
11/13/24
04:56
WBC 6.5
Hgb 12.0
Hct 34.8 L
Plt Count 122 L
Sodium 135
Potassium 3.4 L
Chloride 102
Carbon Dioxide 24
BUN 3 L
Creatinine 0.5 L
Glucose 91
Calcium 8.9
Total Bilirubin 0.7
AST 171 H
ALT 129 H
Alkaline Phosphatase 114
Vital Signs:
Vital Signs
Temp Pulse Resp BP Pulse Ox
98.9 F 80 19 121/78 94
11/13/24 11:42 11/13/24 12:00 11/13/24 12:00 11/13/24 12:00 11/13/24 08:23
I&O
11/12/24 11/13/24 11/14/24
06:59 06:59 06:59
Intake Total 2039
Balance 2039
Review of Systems
-
History Source: Patient
All other systems: Reviewed and negative
Abdomen/GI: Reports Nausea and Vomiting
Psych: Reports Anxious
Physical Exam
-
General: No Apparent Distress
--- NOTE | 2024-11-13 14:47 | W.PN.UPDATE ---
Update Note
Progress Note Update
patient seen chart reviewed. discussed with nursing. the patient is noted to be on a number of psychotropic medications in addition to phenobarb detox as well as msas ativan notably with four mg and two mg dosages rather than two mg and one mg
dosages. .she is also taking clonidine wellbutrin buspar trazodone melatonin zoloft hydroxyzine 100 tid with a prn of 25. as an out pt she was also taking adderall and drinking. (adderall can contribute to anxiety as well ) she tells me she feels
terrible bc withdrawal today. i would suggest thinking about reducing the amount of sedating medications she is taking and dc of wellbutrin which can lower the seizure threshhold. would dc buspar as it is unlikely to be necessary given all the
ativan she is getting. would consider reducing the msas back to the usual 2 mg / 1 mg schedule. would reduce atarax to 50 mg tid and dc prn. she does not see psychiatrist but pcp is prescribing for her. will follow
[2024-11-13] MEDS: PHENOBARBITAL 97.5 MG IV ×2 (15:15→22:24)
[2024-11-13] MEDS: ATARAX 50 MG PO ×2 (15:16→22:24)
[2024-11-13] MEDS: KCL ELIXIR 40 MEQ PO (15:16)
[2024-11-13] MEDS: LOVENOX 40 MG SC (17:59)
--- NOTE | 2024-11-13 18:02 | PTCARENOTE ---
Pt again upset that she is 'not getting ativan every hour' or when she asks for it. Attempted to explain MSAS protocol to pt. Pt again threatening to leave AMA and file a complaint. Emotional support provided. MSAS assessments continued q1hr.
[2024-11-13] MEDS: TYLENOL 650 MG PO (18:39)
--- NOTE | 2024-11-13 18:41 | PTCARENOTE ---
Pt now yelling out, vomiting, and states she is seeing people in her room. Repeat MSAS completed with score of 9, PRN Ativan administered; see MAR.
[2024-11-13] MEDS: PROTONIX 40 MG PO (20:45)
[2024-11-13] MEDS: CATAPRES 0.1 MG PO (20:45)
[2024-11-13] MEDS: DESYREL 50 MG PO (22:25)
--- NOTE | 2024-11-14 02:31 | PTCARENOTE ---
Patient AAOx3, anxious. Pt stating she is seeing 'shadows of people'. MSAS 8 upon assessment see worklist and MAR. Pt having notable tremors. Spoke to pt about alcohol use and pt states she has had a problem 'for awhile'. Pt MSAS 3-4 throughout the
night. Pt appears restless. Pt continuously ripping on BP cuff, despite education efforts. Pt accepting to possible rehab and seems optimistic. Pt NSR/ST on tele. 97% on room air. Pt ambulating to the bathroom with standby assistance. Pt using the
call medrano appropriately, call medrano within reach.
[2024-11-14] MEDS: TYLENOL 650 MG PO (05:33)
[2024-11-14] MEDS: ATIVAN 2 MG PO (05:33)
[2024-11-14 05:57] LABS: Hematocrit 40.1 % (37.0-47.0); Hemoglobin 13.3 g/dL (12.0-16.0); Mean Corp Hgb Conc. 33.2 g/dL (33.0-37.0); Mean Corpuscular Hgb 27.4 pg (27.0-31.0); Mean Corpuscular Volume 82.7 fL (81.0-99.0); Mean Platelet Volume 11.1 fL (7.4-10.4); Platelet Count 125 10^3/uL (130-400); Red Blood Cell Count 4.85 10^6/uL (4.20-5.40); Red Cell Dist. Width 13.2 % (11.5-14.5); White Blood Cell Count 6.2 10^3/uL (4.8-10.8)
[2024-11-14 06:02] LABS: ALT (SGPT) 117 U/L (0-35); AST (SGOT) 105 U/L (14-36); Albumin 4.3 g/dl (3.5-5.0); Alkaline Phosphatase 121 U/L (38-126); Blood Urea Nitrogen 5 mg/dl (7-17); Calcium 9.8 mg/dl (8.4-10.2); Carbon Dioxide 26 mmol/L (22-30); Chloride 101 mmol/L (98-107); Estimated Creatinine Clearance 117 ml/min; Glucose 99 mg/dl (70-99); Magnesium 1.9 mg/dl (1.6-2.3); Phosphorus 4.3 mg/dl (2.5-4.5); Potassium 3.7 mmol/L (3.5-5.1); Sodium 136 mmol/L (135-145); Total Bilirubin 0.7 mg/dl (0.2-1.3); Total Protein 7.4 g/dl (6.3-8.2); eGFR > 60.00
[2024-11-14 07:09] LABS: % Basophils 0.8 % (0-2); % Eosinophils 1.5 % (0-6); % Immature Granulocytes 0.2 % (0-0.5); % Lymphocytes 52.7 % (20.5-51.1); % Monocytes 7.1 % (1.7-9.3); % Neutrophils 37.7 % (42.2-75.2); Absolute Basophils 0.1 10^3/uL (0-0.2); Absolute Eosinophils 0.1 10^3/uL (0-0.7); Absolute Lymphocytes 3.3 10^3/uL (1.2-3.4); Absolute Monocytes 0.4 10^3/uL (0.1-0.6); Absolute Neutrophils 2.3 10^3/uL (1.4-6.5); Nucleated Red Blood Cells % 0 %
[2024-11-14] MEDS: ATARAX 50 MG PO ×3 (08:26→21:57)
[2024-11-14] MEDS: CATAPRES 0.1 MG PO ×2 (08:26→20:12)
[2024-11-14] MEDS: VITAMIN B1 100 MG PO ×2 (08:27→20:12)
[2024-11-14] MEDS: FOLVITE 1 MG PO (08:27)
[2024-11-14] MEDS: PROTONIX 40 MG PO ×2 (08:27→20:12)
[2024-11-14] MEDS: ZOLOFT 50 MG PO (08:27)
[2024-11-14] MEDS: PHENOBARBITAL 97.5 MG IV (08:27)
[2024-11-14 08:36] VITALS: BP 102/77
[2024-11-14 10:25] VITALS: BP 124/84
[2024-11-14] MEDS: NSS (PRESERVATIVE FREE) 1 ML IV ×5 (10:30→19:28)
[2024-11-14] MEDS: ATIVAN 2 MG IV ×5 (10:30→19:27)
[2024-11-14 12:50] VITALS: BP 98/77
--- NOTE | 2024-11-14 14:17 | W.PN.UPDATE ---
Update Note
Progress Note Update
patient seen chart reviewed. spoke at length with nursing and case mgt. when i saw patient she had just received ativan 2 mg for a 'soft eight' as per nursing [facility]. her bp was 94/64 her pulse was 84. she appeared quite calm and yawned several
times. she was not tremulous or sweating. she has received 14 mg of ativan since yesterday morning in addition to phenobarb and a number of other medications. she maintains that she is still struggling with wd. i do not doubt there are
psychological effects of wd that she is dealing with but the physical aspect seems more than under control. i broached with her my concern about the regimen of medications she is prescribed . she typically takes four one mg doses of ativan daily in
addition to abusing etoh. this is generally contraindicated. then there are the huge doses of hydroxyzine and adderall for add (the sedative medications and etoh can contribute to difficulty with focus and attention). on the one hand she admitted
she needs to change but this is what she knows . on the other hand she threatened to sign out ama if i changed any of her current meds. she has FIVE dui's that she has yet to deal with. she told me she was at [facility] [place] for some months and stayed
sober for three months after. she was then at [facility] when she relapsed but signed out after ten days. while patient told me she would give rehab another try if she could go home to get her things cm told me she has refused rehab. it will
remain to be seen what her decision will be. [facility] is coming around later today. will speak with hospitalist. i did not make any changes in patient's psych / wd meds today.
--- NOTE | 2024-11-14 15:05 | PTCARENOTE ---
Ambulated to bathroom with pct- got washed up.
[2024-11-14] MEDS: LUMINAL 64.8 MG PO ×2 (16:06→21:57)
--- NOTE | 2024-11-14 17:06 | W.PN.HOSP.TC ---
Today's Communication/Plan
-
Assessment / Plan
Assessment / Plan
Gen-AAOx3, NAD
HEENT-NC, AT, anicteric, clear oral mm
Neck-supple
CV-reg, no M, +S1/S2
Lungs-clear B/L
Abd-soft, NT, ND
Musculoskeletal-no edema, no deformity
Skin-warm and dry
Neuro-grossly non-focal
Psych-anxious, cooperative
Alcohol use disorder with acute withdrawal:
-Initially presented with alcohol intoxication and now with alcohol withdrawal.
-Has been intermittently having hallucination suspect sec to withdrawal, although suspect there is an element of malingering here.
-Now alert, no longer lethargic, she wants to quit alcohol.
-On multiple psychiatric medications at home including benzodiazepines which have been restarted
-Continue phenobarbital with taper
-Ativan as needed per [facility] protocol
-Psychiatry following, appreciate guidance with multitude of psychiatric medications and benzos in addition to with patient's drug-seeking behavior
-Supportive care including antiemetics as needed
Orthostatic hypotension:
-suspect volume deficit.
-No obvious extrarenal losses. Supported IV fluids and follow.
-TSH within normal limits
Abnormal liver function test:
-elevated transaminitis-suspect secondary to alcohol use.
-Follow for now.
History of substance abuse:
-urine drug screen positive for benzos and amphetamine which is likely secondary to her medication use.
Hypokalemia:
-Resolved
Anxiety/ADHD-medication per psychiatrist.
Full code.
Anticipated Discharge: 24 - 48 hours
Subjective/Interval History
-
Date of Service: November 14, 2024
Patient was seen and examined at bedside this morning. Continues to complain of medicating of benzos although appears to be at least somewhat malingering.
Objective Data
-
Labs:
Laboratory Results
11/14/24
05:21
WBC 6.2
Hgb 13.3
Hct 40.1
Plt Count 125 L
Sodium 136
Potassium 3.7
Chloride 101
Carbon Dioxide 26
BUN 5 L
Creatinine 0.6
Glucose 99
Calcium 9.8
Total Bilirubin 0.7
AST 105 H
ALT 117 H
Alkaline Phosphatase 121
Vital Signs:
Vital Signs
Temp Pulse Resp BP Pulse Ox
98.6 F 90 26 98/77 96
11/14/24 15:05 11/14/24 14:00 11/14/24 14:00 11/14/24 12:50 11/14/24 01:55
I&O
11/13/24 11/14/24 11/15/24
06:59 06:59 06:59
Output Total 250 / 250
Balance -250 / -250
Review of Systems
-
History Source: Patient
All other systems: Reviewed and negative
Psych: Reports Anxious
Physical Exam
-
General: No Apparent Distress
[2024-11-14] MEDS: LOVENOX 40 MG SC (17:41)
--- NOTE | 2024-11-14 17:41 | CM ---
Patient with Dx Alcohol use disorder with alcohol withdrawal. MSAS. Receiving PO Phenobarb with taper, PO Ativan prn. Seen by Psych.
Spoke with [facility] Hi; patient does not want any [facility] referrals or programs.
Case discussed with Dr Cook.
Plan home.
--- NOTE | 2024-11-14 18:32 | PTCARENOTE ---
Required IV Ativan 2mg dose for MSAS 8-9 x4 doses today. Sleeps post administration (scores 3-4) See flow sheets and MAR. Scheduled meds given as ordered. AAO, talked to best friend on the phone today. Assessment otherwise wnl.
[2024-11-14 19:18] VITALS: BP 99/82
[2024-11-14] MEDS: COMPAZINE 5 MG IV (19:28)
[2024-11-14 20:18] VITALS: BP 120/85
--- NOTE | 2024-11-14 20:34 | PTCARENOTE ---
Received pt at change of shift. Pt c/o nausea and vomiting. Hand tremors present. MSAS is an 8. Administered PRN IV ativan and compazine per order (see MAR). IV infiltrated. VAT called and new IV placed in left FA. Able to use the commode with
1 assist. Resting in bed with call medrano in reach.
[2024-11-14] MEDS: DESYREL 50 MG PO (21:57)
[2024-11-15] VITALS (9 sets, daily range): BP systolic 102–126; BP diastolic 73–91
[2024-11-15] MEDS: ATIVAN 2 MG PO ×2 (02:34→09:09)
[2024-11-15] MEDS: NSS (PRESERVATIVE FREE) 10 ML IV (03:42)
[2024-11-15] MEDS: ATIVAN 2 MG IV (03:43)
[2024-11-15] MEDS: TYLENOL 650 MG PO (04:02)
[2024-11-15 04:43] LABS: Hematocrit 37.2 % (37.0-47.0); Hemoglobin 12.4 g/dL (12.0-16.0); Mean Corp Hgb Conc. 33.3 g/dL (33.0-37.0); Mean Corpuscular Hgb 27.5 pg (27.0-31.0); Mean Corpuscular Volume 82.5 fL (81.0-99.0); Mean Platelet Volume 11.5 fL (7.4-10.4); Platelet Count 114 10^3/uL (130-400); Red Blood Cell Count 4.51 10^6/uL (4.20-5.40); Red Cell Dist. Width 13.3 % (11.5-14.5); White Blood Cell Count 5.4 10^3/uL (4.8-10.8)
[2024-11-15 05:01] LABS: Blood Urea Nitrogen 6 mg/dl (7-17); Calcium 9.5 mg/dl (8.4-10.2); Carbon Dioxide 23 mmol/L (22-30); Chloride 101 mmol/L (98-107); Estimated Creatinine Clearance 117 ml/min; Glucose 96 mg/dl (70-99); Potassium 3.4 mmol/L (3.5-5.1); Sodium 134 mmol/L (135-145); eGFR > 60.00
[2024-11-15] MEDS: ATARAX 50 MG PO ×3 (08:59→20:45)
[2024-11-15] MEDS: PROTONIX 40 MG PO ×2 (09:00→20:45)
[2024-11-15] MEDS: VITAMIN B1 100 MG PO ×2 (09:00→20:45)
[2024-11-15] MEDS: FOLVITE 1 MG PO (09:00)
[2024-11-15] MEDS: LUMINAL 64.8 MG PO ×3 (09:00→20:45)
[2024-11-15] MEDS: ZOLOFT 50 MG PO (09:00)
[2024-11-15] MEDS: CATAPRES 0.1 MG PO ×2 (09:08→20:45)
[2024-11-15] MEDS: ATIVAN 1 MG PO ×2 (12:00→14:02)
--- NOTE | 2024-11-15 13:51 | W.PN.UPDATE ---
Addendum entered and electronically signed by Chika Cook MD 11/15/24 14:03:
i spoke to maday from [facility] [place] who will come up to see patient this afternoon. he had made an effort to see her prior but she put him off. he will try again!
Original Note:
Update Note
Progress Note Update
patient seen chart reviewed. spoke with nursing. patient remains much the same in terms of requests for benzos. she expressed her disapproval of my cutting back on her ativan but to her credit she listened to my explanation of why. she then told me
i should 'compromise' and let her have more ativan and pointed out that SHE is compromising just by being here. to which i responded that this is not enough of a 'compromise ' on her part and explained that it may take more willingness to be
uncomfortable at this point to get to sobriety. she admitted what she has done up til now has NOT been to her advantage in life. noted that while she is insisting she needs more ativan she is NOT tremulous or sweating vital signs are normal and
she almost looks like she could fall asleep at any given moment. she is ambivalent about going to rehab directly from but says she will think about it. will talk w about getting in touch w [facility] [place] to see if they can solidify plans to get her
from here directly to rehab when she is ready.
[2024-11-15] MEDS: LOVENOX 40 MG SC (16:52)
--- NOTE | 2024-11-15 17:21 | W.PN.HOSP.TC ---
Today's Communication/Plan
-
Assessment / Plan
Assessment / Plan
Gen-AAOx3, NAD
HEENT-NC, AT, anicteric, clear oral mm
Neck-supple
CV-reg, no M, +S1/S2
Lungs-clear B/L
Abd-soft, NT, ND
Musculoskeletal-no edema, no deformity
Skin-warm and dry
Neuro-grossly non-focal
Psych-anxious, cooperative
Alcohol use disorder with acute withdrawal:
-Initially presented with alcohol intoxication and now with alcohol withdrawal.
-Has been intermittently having hallucination suspect sec to withdrawal, although suspect there is an element of malingering here.
-Now alert, no longer lethargic, she wants to quit alcohol, is anxious about tapering withdrawal medications
-On multiple psychiatric medications at home including benzodiazepines which have been restarted
-Continue phenobarbital with taper
-Ativan as needed per MSAS protocol
-Psychiatry following, appreciate guidance with multitude of psychiatric medications and benzos in addition to with patient's drug-seeking behavior
-Supportive care including antiemetics as needed
Orthostatic hypotension:
-suspect volume deficit.
-No obvious extrarenal losses. IV fluids discontinued
-TSH within normal limits
Abnormal liver function test:
-elevated transaminitis-suspect secondary to alcohol use.
-Follow for now.
Thrombocytopenia:
-Suspect secondary to alcoholic liver disease
-No evidence of bleeding, will monitor
Hypokalemia:
-Mild
-Replete and continue to monitor
Hyponatremia:
-Mild, monitor
History of substance abuse:
-urine drug screen positive for benzos and amphetamine which is likely secondary to her medication use.
Anxiety/ADHD-medication per psychiatrist.
Full code.
Anticipated Discharge: 24 - 48 hours
Subjective/Interval History
-
Date of Service: November 15, 2024
Patient was seen and examined at bedside this morning. Arelis anxious and agitated about plans to taper her withdrawal medication. Hemodynamically stable.
Objective Data
-
Vital Signs:
Vital Signs
Temp Pulse Resp BP Pulse Ox
98.2 F 73 41 110/91 96
11/15/24 15:05 11/15/24 16:00 11/15/24 16:00 11/15/24 14:00 11/14/24 01:55
I&O
11/14/24 11/15/24 11/16/24
06:59 06:59 06:59
Output Total 250 / 250
Balance -250 / -250
Review of Systems
-
History Source: Patient
All other systems: Reviewed and negative
Psych: Reports Anxious
Physical Exam
-
General: No Apparent Distress
[2024-11-15] MEDS: COMPAZINE 5 MG IV (17:41)
[2024-11-15] MEDS: KCL ELIXIR 40 MEQ PO (17:41)
--- NOTE | 2024-11-15 17:52 | PTCARENOTE ---
MSAS assessments see flowsheets - PO Ativan given x3 (4mg total) today for MSAS 5-6. Multiple discussions/ emotional support provided today. She can be laughing in one moment, tearful the next. She vomited this pm several cookies and brownies/
milk . IV Compazine given. VSS SR 70s-80s on tele.
[2024-11-15] MEDS: DESYREL 50 MG PO (20:45)
--- NOTE | 2024-11-15 23:10 | PTCARENOTE ---
Pt received at beginning of shift resting in bed. Emesis in basin not sure from when. Pt not clear. Not time for antinausea med. Pt requesting Ativan. Anxious/flat affect. MSAS not supporting Ativan dose at this time. When this RN came back later in
shift pt sleeping. VSS. Afebrile. SR on CM. POX 98% on RA. Took HS meds without difficulty. Rest of assessment as documented. Turns self in bed. Call medrano within reach. Will continue to monitor.
[2024-11-16] VITALS: BP 102/72
--- NOTE | 2024-11-16 00:12 | PTCARENOTE ---
Pt requested Ativan. MSAS 1. Per order/protocol MSAS does not meet the need for Ativan. When entering pt's room to inform her of this pt observed sound asleep. Will continue to monitor.
--- NOTE | 2024-11-16 04:33 | PTCARENOTE ---
Am labs obtained from pt. Temperature obtained as well. At this time pt expressed that she is upset that she has not received any Ativan overnight for her 'anxiety.' MSAS throughout shift has been 1-2. Pt throwing tantrum, yelling and cursing that
she is not getting what she wants. Attempts made to explain to pt that her scheduled meds she can have at 0800 this am. Pt talking the entire time attempts made to explain this to pt. Pt currently talking to herself in room. Pt called ED to c/o to
them by yelling at them. Shauna SHAFFER TT'd and made aware of above. Will order something IV for pt. Will continue to monitor.
[2024-11-16 04:53] LABS: Blood Urea Nitrogen 6 mg/dl (7-17); Calcium 9.1 mg/dl (8.4-10.2); Carbon Dioxide 27 mmol/L (22-30); Chloride 102 mmol/L (98-107); Estimated Creatinine Clearance 117 ml/min; Glucose 95 mg/dl (70-99); Phosphorus 4.7 mg/dl (2.5-4.5); Potassium 3.4 mmol/L (3.5-5.1); Sodium 135 mmol/L (135-145); eGFR > 60.00
[2024-11-16] MEDS: ATIVAN 1 MG IV ×3 (04:53→21:28)
[2024-11-16] MEDS: NSS (PRESERVATIVE FREE) 0.5 ML IV ×2 (04:54→21:27)
[2024-11-16] MEDS: ZOLOFT 50 MG PO (08:35)
[2024-11-16] MEDS: FOLVITE 1 MG PO (08:35)
[2024-11-16] MEDS: LUMINAL 64.8 MG PO (08:35)
[2024-11-16] MEDS: VITAMIN B1 100 MG PO ×2 (08:35→21:29)
[2024-11-16] MEDS: CATAPRES 0.1 MG PO ×2 (08:35→21:29)
[2024-11-16] MEDS: KCL ELIXIR 40 MEQ PO (08:35)
[2024-11-16] MEDS: PROTONIX 40 MG PO ×2 (08:36→21:29)
[2024-11-16] MEDS: ATARAX 50 MG PO ×3 (08:36→21:29)
--- NOTE | 2024-11-16 10:23 | W.PN.UPDATE ---
Update Note
Progress Note Update
Tried to talk to the patient but she kept drifting off to sleep and I was not successful in being able to interview her.
For now I would continue current psychotropic meds, certainly would not increase the Ativan.
Will continue F/U.
--- NOTE | 2024-11-16 11:10 | PTCARENOTE ---
Pt downgraded to Tele - Report given to Tasneem GUZMÁN on . Transferred to Rm [id number] via wheelchair.
[2024-11-16] MEDS: TYLENOL 650 MG PO ×2 (11:48→16:08)
[2024-11-16] MEDS: COMPAZINE 5 MG IV ×2 (11:48→18:51)
[2024-11-16 12:48] VITALS: BP 114/70
[2024-11-16 15:00] VITALS: BP 101/81
[2024-11-16] MEDS: LUMINAL 32.4 MG PO ×2 (16:01→21:28)
[2024-11-16] MEDS: LOVENOX 40 MG SC (16:08)
--- NOTE | 2024-11-16 17:01 | W.PN.HOSP.TC ---
Today's Communication/Plan
-
Assessment / Plan
Assessment / Plan
Gen-AAOx3, NAD
HEENT-NC, AT, anicteric, clear oral mm
Neck-supple
CV-reg, no M, +S1/S2
Lungs-clear B/L
Abd-soft, NT, ND
Musculoskeletal-no edema, no deformity
Skin-warm and dry
Neuro-grossly non-focal
Psych-anxious, cooperative
Alcohol use disorder with acute withdrawal:
-Initially presented with alcohol intoxication and now with alcohol withdrawal.
-Has been intermittently having hallucination suspect sec to withdrawal, although suspect there is an element of malingering here.
-Now alert, no longer lethargic, she wants to quit alcohol, is anxious about tapering withdrawal medications
-On multiple psychiatric medications at home including benzodiazepines which have been restarted
-Continue phenobarbital taper
-Ativan as needed per MSAS protocol and for anxiety
-Psychiatry following, appreciate guidance with multitude of psychiatric medications and benzos in addition to with patient's drug-seeking behavior
-Supportive care including antiemetics as needed
Orthostatic hypotension:
-suspect volume deficit.
-No obvious extrarenal losses. IV fluids discontinued
-TSH within normal limits
Abnormal liver function test:
-elevated transaminitis-suspect secondary to alcohol use.
-Follow for now.
Thrombocytopenia:
-Suspect secondary to alcoholic liver disease
-No evidence of bleeding, will monitor
Hypokalemia:
-Mild
-Replete and continue to monitor
Hyponatremia:
-Mild, monitor
History of substance abuse:
-urine drug screen positive for benzos and amphetamine which is likely secondary to her medication use.
Anxiety/ADHD-medication per psychiatrist.
Full code.
Anticipated Discharge: 24 - 48 hours
Subjective/Interval History
-
Date of Service: November 16, 2024
Patient was seen and examined at bedside. She has been downgraded to the general medical floors. She continues on her phenobarbital taper. She has been nauseous with some vomiting today.
Objective Data
-
Vital Signs:
Vital Signs
Temp Pulse Resp BP Pulse Ox
98.1 F 69 16 114/70 95
11/16/24 12:48 11/16/24 12:48 11/16/24 12:48 11/16/24 12:48 11/16/24 12:48
I&O
11/15/24 11/16/24 11/17/24
06:59 06:59 06:59
Intake Total 2300 / 2300
Output Total 250 / 250
Balance -250 / -250 2300 / 2300
Review of Systems
-
History Source: Patient
All other systems: Reviewed and negative
Abdomen/GI: Reports Nausea and Vomiting
Psych: Reports Anxious
Physical Exam
-
General: No Apparent Distress
[2024-11-16 21:29] VITALS: BP 100/76
[2024-11-16] MEDS: DESYREL 50 MG PO (21:30)
[2024-11-16] MEDS: ORAJEL 10% GEL 1 APPLIC TOPICAL (21:30)
[2024-11-16 23:32] VITALS: BP 124/80
[2024-11-17 02:59] VITALS: BP 111/76
[2024-11-17] MEDS: TYLENOL 650 MG PO ×2 (03:06→10:47)
[2024-11-17] MEDS: ATIVAN 1 MG IV ×6 (03:07→23:50)
[2024-11-17] MEDS: NSS (PRESERVATIVE FREE) 0.5 ML IV (03:07)
[2024-11-17 07:00] VITALS: BP 130/88
[2024-11-17] MEDS: VITAMIN B1 100 MG PO ×2 (07:24→20:27)
[2024-11-17] MEDS: FOLVITE 1 MG PO (07:24)
[2024-11-17] MEDS: PROTONIX 40 MG PO ×2 (07:24→20:26)
[2024-11-17] MEDS: LUMINAL 32.4 MG PO ×3 (07:24→21:14)
[2024-11-17] MEDS: ZOLOFT 50 MG PO (07:24)
[2024-11-17] MEDS: CATAPRES 0.1 MG PO ×2 (07:24→20:27)
[2024-11-17] MEDS: ATARAX 50 MG PO ×3 (07:24→21:15)
[2024-11-17] MEDS: ORAJEL 10% GEL 1 APPLIC TOPICAL ×3 (07:49→21:14)
[2024-11-17] MEDS: COMPAZINE 5 MG IV ×2 (07:50→15:06)
[2024-11-17 07:58] LABS: Blood Urea Nitrogen 7 mg/dl (7-17); Calcium 9.3 mg/dl (8.4-10.2); Carbon Dioxide 25 mmol/L (22-30); Chloride 100 mmol/L (98-107); Estimated Creatinine Clearance 117 ml/min; Glucose 88 mg/dl (70-99); Phosphorus 4.3 mg/dl (2.5-4.5); Potassium 3.4 mmol/L (3.5-5.1); Sodium 134 mmol/L (135-145); eGFR > 60.00
--- NOTE | 2024-11-17 09:41 | W.PN.UPDATE ---
Update Note
Progress Note Update
Patient is now awake and able to have an conversation with. She reports she is feeling better , denies any withdrawal symptoms and denies also dysphoria, anhedonia, hopelessness or suicidal thoughts.
She is interested in going to rehab but wants to go home first. She states she has a BF who is sober and is a support system for her.
We discussed strategies for maintaining sobriety and her goal for the future.
I would continue current psychotropic meds.
[2024-11-17] MEDS: KCL ELIXIR 40 MEQ PO (10:12)
[2024-11-17 11:00] VITALS: BP 109/69
[2024-11-17 15:00] VITALS: BP 111/73
--- NOTE | 2024-11-17 16:15 | W.PN.HOSP.TC ---
Today's Communication/Plan
-
Assessment / Plan
Assessment / Plan
Gen-AAOx3, NAD
HEENT-NC, AT, anicteric, clear oral mm
Neck-supple
CV-reg, no M, +S1/S2
Lungs-clear B/L
Abd-soft, NT, ND
Musculoskeletal-no edema, no deformity
Skin-warm and dry
Neuro-grossly non-focal
Psych-anxious, cooperative
Alcohol use disorder with acute withdrawal:
-Initially presented with alcohol intoxication and now with alcohol withdrawal.
-Has been intermittently having hallucination suspect sec to withdrawal, although suspect there is an element of malingering here.
-Now alert, no longer lethargic, she wants to quit alcohol, is anxious about tapering withdrawal medications
-On multiple psychiatric medications at home including benzodiazepines which have been restarted
-Continue phenobarbital taper
-Ativan as needed per MSAS protocol and for anxiety
-Psychiatry following, appreciate guidance with multitude of psychiatric medications and benzos in addition to with patient's drug-seeking behavior
-Supportive care including antiemetics as needed
-Anticipate discharge to home tomorrow 3/3 after completing phenobarbital taper
Orthostatic hypotension:
-suspect volume deficit.
-No obvious extrarenal losses. IV fluids discontinued
-TSH within normal limits
Abnormal liver function test:
-elevated transaminitis-suspect secondary to alcohol use.
-Follow for now.
Thrombocytopenia:
-Suspect secondary to alcoholic liver disease
-No evidence of bleeding, will monitor
Hypokalemia:
-Mild
-Replete and continue to monitor
Hyponatremia:
-Mild, monitor
History of substance abuse:
-urine drug screen positive for benzos and amphetamine which is likely secondary to her medication use.
Anxiety/ADHD-medication per psychiatrist.
Full code.
Anticipated Discharge: Within 24 hours
Subjective/Interval History
-
Date of Service: November 17, 2024
Patient was seen and examined at bedside this morning. Calm and comfortable. Asking for increasing her Ativan regimen which I declined.
Objective Data
-
Labs:
Laboratory Results
11/17/24
07:05
Sodium 134 L
Potassium 3.4 L
Chloride 100
Carbon Dioxide 25
BUN 7
Creatinine 0.6
Glucose 88
Calcium 9.3
Vital Signs:
Vital Signs
Temp Pulse Resp BP Pulse Ox
97.9 F 74 18 109/69 100
11/17/24 11:00 11/17/24 11:00 11/17/24 11:00 11/17/24 11:00 11/17/24 11:00
I&O
11/16/24 11/17/24 11/18/24
06:59 06:59 06:59
Intake Total 0 / 2300
Balance 0 / 2300
Review of Systems
-
History Source: Patient
All other systems: Reviewed and negative
Physical Exam
-
General: No Apparent Distress
[2024-11-17] MEDS: LOVENOX 40 MG SC (18:23)
[2024-11-17] MEDS: ZOFRAN 4 MG IV (18:25)
[2024-11-17] MEDS: ATIVAN 1 MG PO ×2 (18:25→20:27)
[2024-11-17 20:10] VITALS: BP 107/71
[2024-11-17] MEDS: DESYREL 50 MG PO (21:14)
[2024-11-17 23:46] VITALS: BP 107/66
[2024-11-18] MEDS: ATIVAN 1 MG IV ×2 (03:53→09:03)
[2024-11-18 04:01] VITALS: BP 100/70
[2024-11-18] MEDS: ATIVAN 1 MG PO (06:36)
[2024-11-18 07:00] VITALS: BP 115/69
[2024-11-18] MEDS: LUMINAL 32.4 MG PO (08:52)
[2024-11-18] MEDS: PROTONIX 40 MG PO (08:52)
[2024-11-18] MEDS: CATAPRES 0.1 MG PO (08:52)
[2024-11-18] MEDS: ZOLOFT 50 MG PO (08:52)
[2024-11-18] MEDS: VITAMIN B1 100 MG PO (08:52)
[2024-11-18] MEDS: ATARAX 50 MG PO ×2 (08:52→16:02)
[2024-11-18] MEDS: FOLVITE 1 MG PO (08:52)
[2024-11-18] MEDS: ORAJEL 10% GEL 1 APPLIC TOPICAL ×2 (08:53→16:03)
[2024-11-18 09:20] LABS: Blood Urea Nitrogen 7 mg/dl (7-17); Calcium 9.1 mg/dl (8.4-10.2); Carbon Dioxide 28 mmol/L (22-30); Chloride 101 mmol/L (98-107); Estimated Creatinine Clearance 101 ml/min; Glucose 91 mg/dl (70-99); Magnesium 2.2 mg/dl (1.6-2.3); Phosphorus 4.6 mg/dl (2.5-4.5); Sodium 135 mmol/L (135-145); eGFR > 60.00
[2024-11-18] MEDS: ATIVAN 0.5 MG PO (12:35)
--- NOTE | 2024-11-18 13:32 | CM ---
CM reviewed pt with Dr Knox- ready for dc today
Pt noted she is interested in inpt tx but insistent on dc home first to pack her things
Call with [facility]- pt will require to go to an assessment center if home first
[facility] will meet her with bedside to provide further instructions
[facility] will transport her
Discharge Disposition- home, no needs
[2024-11-18] MEDS: ADDERALL 20 MG PO (13:47)
[2024-11-18 15:00] VITALS: BP 117/76
--- NOTE | 2024-11-18 17:13 | W.PN.HOSP.TC ---
Today's Communication/Plan
-
d/c home
Assessment / Plan
Assessment / Plan
Alcohol use disorder with acute withdrawal:
-Initially presented with alcohol intoxication and now with alcohol withdrawal.
-Has been intermittently having hallucination suspect sec to withdrawal, although suspect there is an element of malingering here.
-Now alert, no longer lethargic, she wants to quit alcohol, is anxious about tapering withdrawal medications
-On multiple psychiatric medications at home including benzodiazepines which have been restarted
-Psychiatry following, appreciate guidance with multitude of psychiatric medications and benzos in addition to with patient's drug-seeking behavior
-Supportive care including antiemetics as needed
-Patient finished phenobarbital protocol
-As needed IV Ativan changed to oral Ativan
-Discussed with patient that patient would benefit with inpatient alcohol rehab placement although patient wants to go home first followed by going to rehab. Discussed with case management to help if its possible.
Orthostatic hypotension:
-suspect volume deficit.
-No obvious extrarenal losses. IV fluids discontinued
-TSH within normal limits
Abnormal liver function test:
-elevated transaminitis-suspect secondary to alcohol use.
-Follow for now.
Thrombocytopenia:
-Suspect secondary to alcoholic liver disease
-No evidence of bleeding, will monitor
Hypokalemia:
-Mild
-Replete and continue to monitor
Hyponatremia:
-Mild, monitor
History of substance abuse:
-urine drug screen positive for benzos and amphetamine which is likely secondary to her medication use.
Anxiety/ADHD
-PDMP reviewed and patient been started back on Adderall 20 mg daily
Full code.
Patient has somewhat of drug-seeking behavior and on multiple psychoactive medication including benzos. Patient would benefit with inpatient alcohol rehab placement followed by psychiatry follow-up although unsure if patient willing to put the
effort in the process.
More than 30 minutes spent in discharge including
Final examination of the patient
Summarizing hospital stay
Instructions for continuing care to all relevant caregivers
Preparation of discharge records, prescriptions, and referral forms
Total time spent (in minutes): 38 mins
Anticipated Discharge: Today
Subjective/Interval History
-
Date of Service: November 18, 2024
Patient remains anxious
Continues to feel nauseous and reported having vomiting episode
Objective Data
-
Labs:
Laboratory Results
11/18/24
08:06
Sodium 135
Potassium 4.0
Chloride 101
Carbon Dioxide 28
BUN 7
Creatinine 0.7
Glucose 91
Calcium 9.1
Vital Signs:
Vital Signs
Temp Pulse Resp BP Pulse Ox
98.8 F 92 19 117/76 98
11/18/24 15:00 11/18/24 15:00 11/18/24 15:00 11/18/24 15:00 11/18/24 15:00
I&O
11/17/24 11/18/24 11/19/24
06:59 06:59 06:59
Intake Total 240 / 240
Balance 240 / 240
Review of Systems
-
Respiratory: Reports No Symptoms
Cardiac: Reports No Symptoms
Abdomen/GI: Reports Nausea and Vomiting
Physical Exam
-
General: Comfortable
HEENT: Negative Oxygen
Respiratory: Clear to Auscultation
Cardiac: Regular Rhythm and S1/S2; Negative Murmur or Rub
GI: Soft, Nontender and Nondistended
Musculoskeletal: No Edema
Neuro: Awake, Alert, Oriented, No Motor Deficits and Nonfocal/Grossly Intact
Psych: Calm
[2024-11-18] MEDS: LOVENOX 40 MG SC (17:18)
--- NOTE | 2024-11-20 17:14 | W.DCSUMMARY ---
Discharge Summary
Discharge Data
Date of Admission: 11/12/24
Date of Discharge: 11/18/24
-
Pending Results: No
Hospital Course
Discharging Physician : Dr Trenton Knox
Disposition : To home
Primary care physician : Unknown
Principal Discharge diagnosis :
Alcohol use disorder and alcohol withdrawal
Intentional overdose of medication
Orthostatic hypotension
Abnormal liver function test
Thrombocytopenia
Hypokalemia
Hyponatremia
Chronic Discharge diagnosis :
Generalized anxiety disorder
Attention deficit disorder
History substance use
Hospital Course :
Patient is a 29-year-old female with past medical history of substance abuse came to ER with unintentional overdose of home medication, unclear which medication patient took. Urine toxin is positive for amphetamine and benzodiazepines. Alcohol
level of 343 at admission. Patient was admitted to hospital for monitoring of possible alcohol withdrawal and cardiac monitoring from drug-related overdose. Patient patient later required to be started on phenobarbital protocol for alcohol
withdrawal. Patient was reported to having hallucinations and was encephalopathic. Psychiatry was involved in care and was following along. Patient underwent prolonged hospitalization for withdrawal and required to finish phenobarb protocol in
the hospital. Patient continued to still have episodic hallucinations post withdrawal and was recommended to follow-up with psychiatry on outpatient basis. Discharge medications were adjusted based on psychiatry recommendation. Alcohol rehab was
discussed with patient although patient declined to go directly from the hospital.
Patient also had orthostatic hypotension, for which patient provided IV fluid. This improved without any further intervention later in the hospital stay.
Post medical stabilization patient was discharged home.
Important imaging findings :
None
Procedure findings :
None
Discharge Plan
-
Patient Disposition: Home (Routine Discharge)
Discharge Diagnosis/Procedures: Alcohol use disorder, alcohol withdrawal, Hallucination, anxiety
Condition: Fair
Diet: Regular
Activity: As tolerated
Driving Restrictions: As prior to admission
Bathing Restrictions: OK to Shower
Referrals:
UNKNOWN - PT NOT,INTERVIEWE [Family Provider] -
Prescriptions:
New
sertraline 50 mg Tablet
50 mg PO DAILY Qty: 30 1RF
dextroamphetamine-amphetamine [Adderall] 20 mg tablet
20 mg PO DAILY Qty: 3 0RF
lorazepam [Ativan] 1 mg tablet
1 mg PO TID PRN (Reason: anxiety) Qty: 10 0RF
ondansetron 4 mg tablet,disintegrating
4 mg PO Q8H PRN (Reason: nausea and vomiting) 3 Days Qty: 14 0RF
Continued
trazodone 50 mg Tablet
50 mg PO HS
melatonin 3 mg Tablet
6 mg PO HSPRN PRN (Reason: sleep)
clonidine HCl 0.1 mg Tablet
0.1 mg PO BID
bupropion HCl 150 mg Tablet Extended Release 24 Hr
150 mg PO DAILY
pantoprazole [Protonix] 40 mg Tablet,Delayed Release (Dr/Ec)
40 mg PO BID
buspirone 15 mg Tablet
15 mg PO BID
Changed
hydroxyzine pamoate 100 mg Capsule
50 mg PO TIDPRN PRN (Reason: anxiety) Qty: 0 0RF
Discontinued
dextroamphetamine-amphetamine [Adderall] 20 mg Tablet
20 mg PO BID
lorazepam 1 mg Tablet
1 mg PO BIDPRN PRN (Reason: Anxiety)
Discharge Orders:
Discharge Patient (As Directed); Ordered 11/18/24
Ordered By: Trenton Knox
Discharge Date and Time
Discharge Date/Time: 11/18/24 18:04
Print Language: PORTUGUESE
== END 2024-11-18 18:04 | disposition home or self-care (01) | DRG 918 ==
LOC: 4 WEST ACU 12:33
PROVIDERS: Internal Medicine; Nurse Practitioner Family; ADMITTING PHYSICIAN Hospitalist; ATTENDING PHYSICIAN Hospitalist; CONSULT PHYSICIAN Psychiatry & Neurology Psychiatry; EMERGENCY PHYSICIAN Emergency Medicine
DX: T50.911A Poisoning by multiple unspecified drugs, medicaments and biological substances, accidental (unintentional), initial encounter (principal); F10.151 Alcohol abuse with alcohol-induced psychotic disorder with hallucinations; F10.139 Alcohol abuse with withdrawal, unspecified; F13.20 Sedative, hypnotic or anxiolytic dependence, uncomplicated; E87.1 Hypo-osmolality and hyponatremia; G93.40 Encephalopathy, unspecified; F13.229 Sedative, hypnotic or anxiolytic dependence with intoxication, unspecified; Y92.009 Unspecified place in unspecified non-institutional (private) residence as the place of occurrence of the external cause; R41.82 Altered mental status, unspecified; K21.9 Gastro-esophageal reflux disease without esophagitis; K70.9 Alcoholic liver disease, unspecified; F10.129 Alcohol abuse with intoxication, unspecified; Y90.8 Blood alcohol level of 240 mg/100 ml or more; R53.1 Weakness; R53.83 Other fatigue; F41.9 Anxiety disorder, unspecified; F90.9 Attention-deficit hyperactivity disorder, unspecified type; D69.6 Thrombocytopenia, unspecified; I45.10 Unspecified right bundle-branch block; F32.A Depression, unspecified; R74.01 Elevation of levels of liver transaminase levels; I95.1 Orthostatic hypotension; F15.10 Other stimulant abuse, uncomplicated; E87.6 Hypokalemia; Z91.041 Radiographic dye allergy status; Z76.5 Malingerer [conscious simulation]
CPT/HCPCS: 70450; 71045; 80048; 80053; 80143; 80179; 80306; 80307; 81003; 82010; 82077; 82962; 82977; 83735; 84100; 84443; 84703; 85025; 85027; 93005; 94640; 99291

== ENCOUNTER 2024-11-23 08:30 | Emergency (ER) | payer OTHER, SELFPAY ==
[2024-11-23 08:36] VITALS: BP 117/71
--- NOTE | 2024-11-23 09:12 | ED.GENMED ---
History of Present Illness
General
Chief Complaint: Alcohol Problem
Source: patient
Time Seen by Provider: 11/23/24 09:00
History of Present Illness
History of Present Illness:
This patient is a 29-year-old female presents emergency department via EMS. EMS run she describes 'stomach pain', and lists metformin as one of her medications. Patient is a extremely poor historian here and for some period of time refused to
speak at all. She cannot verify her medications however upon review of her discharge summary from November 18 of this year, metformin is not listed. According to triage, patient has a history of alcohol use disorder and takes approximately 10 Percocet
a day, presents here seeking treatment. To me, patient will only state 'I take too many pills', 'I took what he gave me', and 'I drink too much'. She will not tell me when her last intake was, details of what pills she is taking, etc. She
describes 'stomach pain', and points nonspecifically to her general abdomen. She does not offer any further complaints or history.
Past History
Past History
ED Past Medical History: GERD, Psychiatric and Other (Alcoholic liver disease)
ED Past Surgical History: Gynecological
Social History
Alcohol: Chronic alcoholic
Drug: Other
Living: with family
Employment: Not employed
Family History
Family History: Other (Noncontributory)
Phy Exam
Physical Exam
Physical Exam:
GENERAL: Alert , in no apparent distress
EYE: pupils equal and reactive, no photophobia
NECK: Supple, no significant adenopathy.
ENT: o/p clr, mm dry
CARDIAC: Regular rate and rhythm .
LUNGS: Clear breath sounds bilaterally, no acute respiratory distress, no wheezes/rales/rhonchi
ABDOMEN: Soft, without focal tenderness, no r/g
NEUROLOGICAL: Alert and oriented, no focal neuro deficits
SKIN: Warm and dry, skin intact.
MUSCULOSKELETAL: No edema, well perfused.
PSYCH: Minimal verbal interaction
Course
Orders/Labs/Results
Orders:
Orders
11/23/24 09:12
Cardiac Monitoring- Treatment ONCE
Urine Drug Abuse Screen Urgent
0.9% Sodium Chloride 1000 ml [Nss] 1,000 ml IV BOLUS
Test Result ONCE
11/23/24 09:28
Acetaminophen Urgent
Alcohol Urgent
Complete Blood Count/No Diff Urgent
Comprehensive Metabolic Panel Urgent
HCG, Serum Qualitative Screen Urgent
PTT Urgent
Prothrombin Time Urgent
Salicylate Urgent
11/23/24 12:15
Lorazepam [Ativan] 1 mg IV NOW STA
Abnormal Lab Results
11/23/24
09:28
Hct 36.4 L %
(37.0-47.0)
Sodium 146 H mmol/L
(135-145)
AST 50 H U/L
(14-36)
ALT 49 H U/L
(0-35)
Salicylates < 1.0 L mg/dl
(2.0-20.0)
Acetaminophen < 10 L ug/ml
(10-30)
11/23/24 09:28
11/23/24 09:28
Vital Signs
Initial and Last Documented VS:
Initial Vital Signs
Temp Pulse Resp BP Pulse Ox
98.4 F 88 18 117/71 98
11/23/24 08:36 11/23/24 08:36 11/23/24 08:36 11/23/24 08:36 11/23/24 08:36
Last Documented Vital Signs
Temp Pulse Resp BP Pulse Ox
98.1 F 79 17 110/76 98
11/23/24 09:32 11/23/24 13:32 11/23/24 13:32 11/23/24 13:32 11/23/24 10:15
Update Note
Update Note:
Patient presents to the Emergency Department with 'stomach pain',____
Number and Complexity of Problems Addressed at the Encounter
� Chronic conditions affecting care:
� Acute Exacerbation and/or Progression of Chronic Illness:
� Differential Diagnosis includes: But not limited to pancreatitis, hepatitis, Tylenol related overdose, alcohol withdrawal, etc. etc.
Amount and/or Complexity of Data to be Reviewed and Analyzed
� I performed an independent evaluation of and my interpretation is:
EKG:
CT:
Xrays:
Laboratory Studies: Acetaminophen and aspirin level undetectable, alcohol 299, mild LFT abnormalities likely related to alcohol abuse and improved since prior
Other:
� Review of other/old records reveals: Review of discharge summary from most recent hospitalization earlier this month, there is no documented history of diabetes or metformin. Patient has a history of ADHD, and was on a
phenobarbital taper while being hospitalized because she became encephalopathic with hallucinations.
� Clinical information was obtained by an independent historian:
� Prescriptions/Medications Considered but not given:
� Further testing considered but not performed:
Risk of Complications and/or Morbidity or Mortality of Patient Management
� Social determinants of health affecting care:
� Discussion with other providers (PCP, Hospitalists, Consultants, etc):
� Escalation of care including admission/observation vs risk of discharge considered: 12:15 PM labs noted. Patient has been generally uncooperative. [facility] tried to speak with her and she was very agitated. She is slightly
diaphoretic and agitated at this time, will medicate with 1 mg of Ativan and monitor closely.
Pt resting comfortably, eyes closed, open upon reassessment, no new complnts. Vitals are normal, no diaphoresis, no tremor. Do not clinically suspect acute withdrawal at this time. She is agreeable to d/w [facility], I spoke with Mila who will ring
me in a few moments. Pt clinically stable for d/c.
Multiple reassesswments...pt has nl vitals, no objective signs of withdrawal, and yet repeatedly asking for ativan, which is concerning given the risk of dependency. She is going to pursue inpt treatment.
322 pm Pt spoke with kev again, became argumentative, agitated, and refusing to go inpt or anywhere without receiving more ativan. (I wpoke with [facility] provider about this.) I again spoke with pt, encouraging her to pursue inpt care, she
declines and say she needs and wants ativan and no one is helping her. I reitereated our intentions to help her, avoiding ativan if not indicated,etc. She is cursing and angry, however, lucid and able to reason her decision to now leave. I
encouraged her to rted or reach out to kev if she changes her mind.
ED Attending Note
-
Portions of this chart may have been created with voice recognition software.� Occasional wrong word or��sound alike� substitutions may have occurred due to the inherent limitations of voice recognition software.
Discharge Plan
Departure
Patient Disposition: Home (Routine Discharge)
Date of Disposition: 11/23/24
Time of Disposition: 15:22
Patient with high blood pressure during this ER visit?: No
Condition: Good
Discharge Problem:
Alcohol intoxication, Alcohol use disorder
Instructions: Drug Misuse and Addiction (DC), Alcohol Use Disorder (DC)
Prescriptions:
No Action
trazodone 50 mg Tablet
50 mg PO HS
melatonin 3 mg Tablet
6 mg PO HSPRN PRN (Reason: sleep)
clonidine HCl 0.1 mg Tablet
0.1 mg PO BID
bupropion HCl 150 mg Tablet Extended Release 24 Hr
150 mg PO DAILY
pantoprazole [Protonix] 40 mg Tablet,Delayed Release (Dr/Ec)
40 mg PO BID
buspirone 15 mg Tablet
15 mg PO BID
sertraline 50 mg Tablet
50 mg PO DAILY Qty: 30 1RF
dextroamphetamine-amphetamine [Adderall] 20 mg tablet
20 mg PO DAILY Qty: 3 0RF
hydroxyzine pamoate 100 mg Capsule
50 mg PO TIDPRN PRN (Reason: anxiety) Qty: 0 0RF
lorazepam [Ativan] 1 mg tablet
1 mg PO TID PRN (Reason: anxiety) Qty: 10 0RF
ondansetron 4 mg tablet,disintegrating
4 mg PO Q8H PRN (Reason: nausea and vomiting) 3 Days Qty: 14 0RF
Referrals:
UNKNOWN - PT NOT,INTERVIEWE [Family Provider] -
Activity Restrictions/Additional Instructions:
PLEASE PROCEED TO RECOVERY RESOURCES DIRECTED.
Interventions
Interventions:
*Risk Screen - Suicide Last Done: 11/23/24 08:36
*General Assessment Last Done: 11/23/24 08:36
*Neglect/Abuse Screening Last Done: 11/23/24 08:36
*ED- Fall Risk Assessment Last Done: 11/23/24 09:35
*ED COVID-19 Vaccine History Last Done: 11/23/24 09:35
ED- Neurological Assessment Last Done: 11/23/24 09:35
ED-Psychological Assessment Last Done: 11/23/24 09:35
Discharge Date and Time
Print Language: CROATIAN
[2024-11-23 09:21] VITALS: BMI 26.1
[2024-11-23 09:28] VITALS: BP 96/62
[2024-11-23] MEDS: NSS 1000 IV (09:29)
[2024-11-23 09:43] LABS: Hematocrit 36.4 % (37.0-47.0); Hemoglobin 12.3 g/dL (12.0-16.0); Mean Corp Hgb Conc. 33.8 g/dL (33.0-37.0); Mean Corpuscular Hgb 28.2 pg (27.0-31.0); Mean Corpuscular Volume 83.5 fL (81.0-99.0); Mean Platelet Volume 9.5 fL (7.4-10.4); Platelet Count 336 10^3/uL (130-400); Red Blood Cell Count 4.36 10^6/uL (4.20-5.40); Red Cell Dist. Width 14.2 % (11.5-14.5); White Blood Cell Count 5.3 10^3/uL (4.8-10.8)
[2024-11-23 09:48] LABS: INR 0.92; PT 12.6 Sec (11.4-14.6)
[2024-11-23 09:49] LABS: APTT 26.2 Sec (23.4-35.0)
[2024-11-23 09:50] LABS: HCG, Serum Qualitative Screen Negative
[2024-11-23 09:53] LABS: ALT (SGPT) 49 U/L (0-35); AST (SGOT) 50 U/L (14-36); Acetaminophen < 10 ug/ml (10-30); Albumin 4.5 g/dl (3.5-5.0); Alcohol 299 mg/dl; Alkaline Phosphatase 118 U/L (38-126); Blood Urea Nitrogen 11 mg/dl (7-17); Calcium 9.2 mg/dl (8.4-10.2); Carbon Dioxide 28 mmol/L (22-30); Chloride 107 mmol/L (98-107); Estimated Creatinine Clearance 117 ml/min; Glucose 93 mg/dl (70-99); Potassium 4.3 mmol/L (3.5-5.1); Salicylate < 1.0 mg/dl (2.0-20.0); Sodium 146 mmol/L (135-145); Total Bilirubin 0.2 mg/dl (0.2-1.3); Total Protein 7.5 g/dl (6.3-8.2); eGFR > 60.00
[2024-11-23 12:02] VITALS: BP 126/84
[2024-11-23] MEDS: ATIVAN 1 MG IV (12:36)
[2024-11-23 13:32] VITALS: BP 110/76
== END 2024-11-23 16:14 | disposition home or self-care (01) ==
LOC: EMR 08:30
PROVIDERS: EMERGENCY PHYSICIAN Emergency Medicine
DX: F10.129 Alcohol abuse with intoxication, unspecified (principal); K21.9 Gastro-esophageal reflux disease without esophagitis; K70.9 Alcoholic liver disease, unspecified
CPT/HCPCS: 99283; 96374; 96361; 80053; 80143; 80179; 82077; 84703; 85027; 85610; 85730

== ENCOUNTER 2024-11-25 10:17 | Emergency (ER) | payer OTHER, SELFPAY ==
[2024-11-25 10:25] VITALS: BP 115/98
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
[2024-11-25 10:40] VITALS: BMI 26.1
[2024-11-25] MEDS: ATIVAN 1 MG PO (10:54)
[2024-11-25 11:00] VITALS: BP 111/77
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
[2024-11-25 11:47] LABS: Urine Albumin 2+ (Neg - Trace); Urine Bilirubin Negative (Negative); Urine Character Clear (Clear); Urine Color Yellow; Urine Glucose Negative (Negative); Urine Ketone 2+ (Negative); Urine Leukocyte Negative (Negative); Urine Nitrite Negative (Negative); Urine Occult Blood Negative (Negative); Urine Urobilinogen Negative (Neg - 1+)
--- NOTE | 2024-11-25 12:05 | EDRN ---
Addendum entered by Ami Cavazos RN 11/25/24 12:15:
Patient refused to sign AMA form.
Original Note:
Patient found walking down the back crystal. Patient stated 'I'm leaving. No one is doing anything to help me. I called him to come get me.' Patient left without her medications. Sent to the pharmacy.
[2024-11-25 12:16] LABS: HCG, Urine Qualitative Screen Negative
[2024-11-25 12:25] LABS: Amphetamines Positive (Negative); Barbiturates Positive (Negative); Benzodiazepines Positive (Negative); Buprenorphine Negative (Negative)
[2024-11-25 12:26] LABS: Cocaine Negative (Negative); Marijuana Positive (Negative); Methadone Negative (Negative); Methamphetamines Positive (Negative); Opiates Negative (Negative); Phencyclidine Negative (Negative); Tricyclic Antidepressants Negative (Negative)
[2024-11-25 12:53] LABS: Urine Amorphous Seen; Urine Mucus Many; Urine Squamous Cell >30 /LPF (Few)
[2024-11-25 12:54] LABS: Urine Red Blood Cell 0-2 /HPF (0-2); Urine White Cell 0-2 /HPF (0-5)
[2024-11-25 13:01] LABS: Fentanyl, Urine Negative (Negative)
== END 2024-11-25 12:05 | disposition left against medical advice (07) ==
LOC: EMR 10:17
PROVIDERS: EMERGENCY PHYSICIAN Student in an Organized Health Care Education/Training Program
DX: R55 Syncope and collapse (principal); F10.90 Alcohol use, unspecified, uncomplicated; R45.1 Restlessness and agitation; K21.9 Gastro-esophageal reflux disease without esophagitis; Z53.29 Procedure and treatment not carried out because of patient's decision for other reasons
CPT/HCPCS: 99284; 80306; 80307; 81003; 81015; 81025; 93005